=== PATIENT | male | born 1950 | race Hispanic/Latino ===

== ENCOUNTER → 2017-12-29 | Outpatient (CLI) | payer OTHER ==
[~2017-12-29] MED LIST: ASPI-1005 PO; ATOR20TA65 PO; CLOP75TA14 PO; METO25 PO; METO25TA6 PO; REGADENOSON 0.4 MG/5 ML PF SYG IVP SCH
== END | disposition home or self-care (01) ==
LOC: RAH 09:03
PROVIDERS: ATTEND Internal Medicine
DX: R06.02 Shortness of breath (principal); R06.09 Other forms of dyspnea
CPT/HCPCS: 78452; 93017; 96374; A9500 ×2; J2785

== ENCOUNTER → 2018-04-13 | Outpatient (CLI) | payer OTHER, MEDICARE ==
[~2018-04-13] MED LIST changes: -CLOP75TA14 PO; +ISOS30TA6 PO; +METO-391 PO; -METO25 PO; -METO25TA6 PO; -REGADENOSON 0.4 MG/5 ML PF SYG IVP SCH
== END | disposition home or self-care (01) ==
LOC: OIH 10:23
PROVIDERS: ATTEND Internal Medicine Cardiovascular Disease
DX: J84.9 Interstitial pulmonary disease, unspecified (principal); I25.10 Atherosclerotic heart disease of native coronary artery without angina pectoris
CPT/HCPCS: 71250

== ENCOUNTER 2018-06-23 17:44 | Emergency (ER) | payer OTHER, MEDICARE ==
[2018-06-23] MEDS ORDERED: ALBUTEROL SULFATE 0.083% 2.5 MG/3 ML INH IH ONE (18:17)
[2018-06-23 18:27] LABS: BASOPHILS % (AUTO) 0.7 % (0.0-5.0); EOSINOPHILS % (AUTO) 1.9 % (0.0-8.0); LYMPHOCYTES % (AUTO) 28.2 % (21.0-51.0); MEAN CORPUSCULAR HEMOGLOBIN 31.1 pg (27.0-33.0); MEAN CORPUSCULAR HGB CONC 34.5 g/dL (32.0-36.0); MEAN CORPUSCULAR VOLUME 90.2 fL (79-99); MONOCYTES % (AUTO) 6.9 % (3.0-13.0); NEUTROPHILS % (AUTO) 62.3 % (40.0-77.0); NUCLEATED RED BLOOD CELLS 0.1 % (0.0-0.19); PLATELET COUNT (AUTO) 222 K/uL (130-400); RED BLOOD CELL COUNT(AUTO) 4.32 MIL/uL (4.50-6.20); RED CELL DISTRIBUTION WIDTH 13.5 % (11.0-15.5)
[2018-06-23 18:37] LABS: POTASSIUM 4.1 mmol/L (3.5-5.1)
[2018-06-23 18:47] LABS: B-TYPE NATRIURETIC PEPTIDE 19 pg/mL (0-100)
[2018-06-23] MEDS ORDERED: AZITHROMYCIN 250 MG TABLET PO ONE (19:16)
[2018-06-23] MEDS ORDERED: PREDNISONE 20 MG TABLET ONE (19:16)
== END 2018-06-23 19:35 | disposition home or self-care (01) ==
LOC: EDH 17:44
DX: J20.9 Acute bronchitis, unspecified (principal); J44.1 Chronic obstructive pulmonary disease with (acute) exacerbation; E78.5 Hyperlipidemia, unspecified; I10 Essential (primary) hypertension; I25.10 Atherosclerotic heart disease of native coronary artery without angina pectoris; Z98.890 Other specified postprocedural states
CPT/HCPCS: 36415; 71046; 80048; 83880; 84484; 85025; 93005; 94640

== ENCOUNTER 2018-08-31 23:02 | Observation (INO) | payer OTHER, MEDICARE ==
[~2018-08-31] VITALS: Ht 172.7 cm; Wt 82.6 kg
[2018-08-31 23:43] LABS: BASOPHILS % (AUTO) 4.5 % (0.0-5.0); EOSINOPHILS % (AUTO) 2.2 % (0.0-8.0); LYMPHOCYTES % (AUTO) 17.8 % (21.0-51.0); MEAN CORPUSCULAR HEMOGLOBIN 30.4 pg (27.0-33.0); MEAN CORPUSCULAR HGB CONC 33.8 g/dL (32.0-36.0); MONOCYTES % (AUTO) 4.9 % (3.0-13.0); NEUTROPHILS % (AUTO) 70.6 % (40.0-77.0); PLATELET COUNT (AUTO) 213 K/uL (130-400); RED BLOOD CELL COUNT(AUTO) 4.11 MIL/uL (4.50-6.20); RED CELL DISTRIBUTION WIDTH 13.2 % (11.0-15.5); WHITE BLOOD COUNT (AUTO) 7.3 K/uL (4.8-10.8)
[2018-08-31 23:46] LABS: POTASSIUM 3.7 mmol/L (3.5-5.1)
[2018-08-31 23:48] LABS: INR 1.01 (0.85-1.15); PARTIAL THROMBOPLASTIN TIME 26.8 SEC (26.3-35.5); PROTHROMBIN TIME 10.6 SEC (9.6-11.6)
[2018-08-31 23:51] LABS: ALBUMIN 3.6 g/dL (3.5-5.0); BILIRUBIN,TOTAL 0.3 mg/dL (0.2-1.0); TOTAL PROTEIN, SERUM 7.3 g/dL (6.0-8.3)
[2018-08-31 23:58] LABS: APPEARANCE,URINE Clear (CLEAR); BILIRUBIN,URINE Negative (NEGATIVE); COLOR,URINE Yellow (YELLOW); GLUCOSE, URINE (UA) Negative (NEGATIVE); KETONES,URINE Negative (NEGATIVE); LEUKOCYTE ESTERASE ,URINE Negative (NEGATIVE); NITRATE,URINE Negative (NEGATIVE); OCCULT BLOOD,URINE Negative (NEGATIVE); PROTEIN,URINE Negative (NEGATIVE)
[2018-09-01 00:10] LABS: B-TYPE NATRIURETIC PEPTIDE 40 pg/mL (0-100)
[2018-09-01] MEDS ORDERED: ASPIRIN 325MG EC TAB 325 MG TABLET.DR PO STA (00:39)
[2018-09-01] MEDS ORDERED: ACETAMINOPHEN 325 MG TAB PO PRN (00:45)
[2018-09-01] MEDS ORDERED: ONDANSETRON HCL 4 MG/2 ML VIAL IV PRN (00:45)
[2018-09-01] MEDS ORDERED: NITROGLYCERIN 0.4 MG SL TAB SL PRN (00:45)
[2018-09-01] MEDS: IPRATROPIUM/ALBUTEROL SULFATE 3 ML SOLUTION IH PRN ×3 (01:18→18:13)
[2018-09-01] MEDS ORDERED: ASPIRIN 325 MG TABLET ONE ×2 (02:00→08:20)
[2018-09-01 02:36] LABS: AMPHET/METH SCREEN,URINE NEGATIVE (NEGATIVE); BARBITURATE SCREEN, URINE NEGATIVE (NEGATIVE); BENZODIAZEPINES SCREEN,URINE NEGATIVE (NEGATIVE); CANNABINOID SCREEN,URINE NEGATIVE (NEGATIVE); COCAINE SCREEN,URINE NEGATIVE (NEGATIVE); OPIATE SCREEN,URINE NEGATIVE (NEGATIVE); PHENCYCLIDINE SCREEN,URINE NEGATIVE (NEGATIVE)
[2018-09-01 06:17] LABS: BASOPHILS % (AUTO) 0.5 % (0.0-5.0); EOSINOPHILS % (AUTO) 1.4 % (0.0-8.0); HEMATOCRIT 34.5 % (42-54); LYMPHOCYTES % (AUTO) 26.9 % (21.0-51.0); MEAN CORPUSCULAR HEMOGLOBIN 30.7 pg (27.0-33.0); MEAN CORPUSCULAR HGB CONC 33.9 g/dL (32.0-36.0); MEAN CORPUSCULAR VOLUME 90.5 fL (79-99); MONOCYTES % (AUTO) 6.5 % (3.0-13.0); NEUTROPHILS % (AUTO) 64.7 % (40.0-77.0); PLATELET COUNT (AUTO) 184 K/uL (130-400); RED BLOOD CELL COUNT(AUTO) 3.82 MIL/uL (4.50-6.20); RED CELL DISTRIBUTION WIDTH 13.1 % (11.0-15.5); WHITE BLOOD COUNT (AUTO) 6.6 K/uL (4.8-10.8)
[2018-09-01 06:27] LABS: CARBON DIOXIDE 21 mmol/L (21-32); CHLORIDE 111 mmol/L (101-111); CREATININE 0.7 mg/dL (0.5-1.5); GLOMERULAR FILTR. RATE CALC 120 mL/min (>60); GLUCOSE,RANDOM 84 mg/dL (70-105); POTASSIUM 3.2 mmol/L (3.5-5.1); SODIUM SERUM 141 mmol/L (136-145); UREA NITROGEN, BLOOD 19 mg/dL (7-18)
[2018-09-01 06:40] LABS: ALANINE AMINOTRANSFERASE 31 U/L (12-78); ALBUMIN 2.8 g/dL (3.5-5.0); ASPARTATE AMINOTRANSFERASE 25 U/L (10-37); BILIRUBIN,TOTAL 0.4 mg/dL (0.2-1.0); CHOLESTEROL 81 mg/dL (<200); CREATINE KINASE, TOTAL 71 U/L (21-232); HDL CHOLESTEROL 36 mg/dL (29-71); LDL DIRECT 43 mg/dL (0-99); MYOGLOBIN 36 ng/mL (10-92); TOTAL PROTEIN, SERUM 5.8 g/dL (6.0-8.3); TRIGLYCERIDES 40 mg/dL (30-200); TROPONIN I < 0.04 ng/mL (0.00-0.06)
[2018-09-01] MEDS ORDERED: ENOXAPARIN SODIUM 30 MG/0.3 ML SQ ONE (08:17)
[2018-09-01] MEDS ORDERED: FAMOTIDINE 20MG TAB 20 MG TAB ONE (08:17)
[2018-09-01] MEDS ORDERED: METOPROLOL TARTRATE 25 MG TAB ONE (08:27)
[2018-09-01] MEDS ORDERED: ASPIRIN 325MG EC TAB 325 MG TABLET.DR PO SCH (09:00)
[2018-09-01] MEDS: METOPROLOL TARTRATE 25 MG TAB PO SCH ×2 (09:00→21:32)
[2018-09-01] MEDS: ENOXAPARIN SODIUM 30 MG/0.3 ML SQ SCH (09:00)
[2018-09-01] MEDS: FAMOTIDINE 20MG TAB 20 MG TAB PO SCH (09:00)
[2018-09-01] MEDS ORDERED: IPRATROPIUM/ALBUTEROL SULFATE 3 ML SOLUTION IH ONE (09:18)
[2018-09-01] MEDS ORDERED: LIDOCAINE HCL-MPF 1% 2ML VIAL IVP PRN (09:30)
[2018-09-01] MEDS ORDERED: POTASSIUM CHLORIDE 10% ELIXIR 20 MEQ/15 ML UDCUP PO PRN (09:30)
[2018-09-01] MEDS ORDERED: POTASSIUM CHLORIDE 20MEQ/100ML 100 ML IV PRN (09:30)
[2018-09-01 13:39] LABS: CREATINE KINASE, TOTAL 84 U/L (21-232); MYOGLOBIN 44 ng/mL (10-92); TROPONIN I < 0.04 ng/mL (0.00-0.06)
[2018-09-01] MEDS ORDERED: PRAS10TA9 PO (15:37)
[2018-09-01 16:00] VITALS: BP 117/75
[2018-09-01 19:00] VITALS: BP 144/67
[2018-09-02] VITALS: BP 135/77
[2018-09-02] MEDS: IPRATROPIUM/ALBUTEROL SULFATE 3 ML SOLUTION IH PRN (02:08)
[2018-09-02 04:00] VITALS: BP 122/74
[2018-09-02 04:40] LABS: HEMATOCRIT 37.1 % (42-54); MEAN CORPUSCULAR HEMOGLOBIN 30.7 pg (27.0-33.0); MEAN CORPUSCULAR HGB CONC 33.8 g/dL (32.0-36.0); MEAN CORPUSCULAR VOLUME 90.9 fL (79-99); PLATELET COUNT (AUTO) 229 K/uL (130-400); RED BLOOD CELL COUNT(AUTO) 4.08 MIL/uL (4.50-6.20); RED CELL DISTRIBUTION WIDTH 13.1 % (11.0-15.5); WHITE BLOOD COUNT (AUTO) 8.4 K/uL (4.8-10.8)
[2018-09-02 08:00] VITALS: BP 114/69
[2018-09-02] MEDS ORDERED: ASPIRIN 325MG EC TAB 325 MG TABLET.DR PO SCH (09:00)
[2018-09-02] MEDS: POTASSIUM CHLORIDE 20 MEQ ERTAB PO PRN ×3 (09:48→15:54)
[2018-09-02] MEDS: METOPROLOL TARTRATE 25 MG TAB PO SCH (09:49)
[2018-09-02] MEDS: FAMOTIDINE 20MG TAB 20 MG TAB PO SCH (09:49)
[2018-09-02] MEDS: ENOXAPARIN SODIUM 30 MG/0.3 ML SQ SCH (09:51)
[2018-09-02 12:00] VITALS: BP 124/72
[2018-09-02 16:00] VITALS: BP 118/80
== END 2018-09-02 18:00 | disposition home or self-care (01) ==
LOC: EDH 23:02 → EDHIP 09-01 00:41 → 3BH 09-01 14:54
PROVIDERS: ADMIT Internal Medicine; ATTEND Internal Medicine
DX: R07.89 Other chest pain (principal); I10 Essential (primary) hypertension; E78.5 Hyperlipidemia, unspecified; M51.37 Other intervertebral disc degeneration, lumbosacral region; I25.10 Atherosclerotic heart disease of native coronary artery without angina pectoris; J44.9 Chronic obstructive pulmonary disease, unspecified; J84.10 Pulmonary fibrosis, unspecified; Z82.49 Family history of ischemic heart disease and other diseases of the circulatory system; Z83.3 Family history of diabetes mellitus; Z95.1 Presence of aortocoronary bypass graft; Z96.652 Presence of left artificial knee joint
CPT/HCPCS: 36415 ×3; 70450; 71045; 80053 ×2; 80061; 80305; 81003; 82550 ×2; 83735; 83874 ×2; 83880; 84484 ×4; 85025 ×2; 85027; 85610; 85730; 93005 ×3; 94640 ×4; 94664; 96372; 99284; G0378 ×41; J1650 ×2

== ENCOUNTER 2019-03-02 16:06 | Emergency (ER) | payer OTHER, MEDICARE ==
[~2019-03-02 16:06] MED LIST changes: +PRAS10TA9 PO
[2019-03-02] MEDS ORDERED: ONDANSETRON HCL 4 MG/2 ML VIAL ONE (16:33)
[2019-03-02 16:35] LABS: BASOPHILS % (AUTO) 0.4 % (0.0-5.0); EOSINOPHILS % (AUTO) 2.6 % (0.0-8.0); HEMATOCRIT 35.6 % (42-54); MEAN CORPUSCULAR HEMOGLOBIN 29.8 pg (27.0-33.0); MEAN CORPUSCULAR HGB CONC 34.3 g/dL (32.0-36.0); MEAN CORPUSCULAR VOLUME 86.9 fL (79-99); MONOCYTES % (AUTO) 6.2 % (3.0-13.0); NEUTROPHILS % (AUTO) 62.8 % (40.0-77.0); PLATELET COUNT (AUTO) 244 K/uL (130-400); RED BLOOD CELL COUNT(AUTO) 4.09 MIL/uL (4.50-6.20); RED CELL DISTRIBUTION WIDTH 14.4 % (11.0-15.5); WHITE BLOOD COUNT (AUTO) 6.2 K/uL (4.8-10.8)
[2019-03-02 16:54] LABS: CREATININE 1.1 mg/dL (0.5-1.5); POTASSIUM 4.7 mmol/L (3.5-5.1)
[2019-03-02 16:57] LABS: APPEARANCE,URINE Clear (CLEAR); BILIRUBIN,URINE Negative (NEGATIVE); COLOR,URINE Yellow (YELLOW); GLUCOSE, URINE (UA) Negative (NEGATIVE); KETONES,URINE Negative (NEGATIVE); LEUKOCYTE ESTERASE ,URINE Negative (NEGATIVE); NITRATE,URINE Negative (NEGATIVE); OCCULT BLOOD,URINE Negative (NEGATIVE); PH,URINE 5.5 (5.0-8.0); PROTEIN,URINE Negative (NEGATIVE)
[2019-03-02 16:59] LABS: BILIRUBIN,TOTAL 0.3 mg/dL (0.2-1.0); TOTAL PROTEIN, SERUM 7.6 g/dL (6.0-8.3)
[2019-03-02 17:01] LABS: INR 0.98 (0.85-1.15); PARTIAL THROMBOPLASTIN TIME 25.2 SEC (26.3-35.5); PROTHROMBIN TIME 10.3 SEC (9.6-11.6)
[2019-03-02] MEDS ORDERED: ASPIRIN 325 MG TABLET ONE (17:10)
== END 2019-03-02 19:28 | disposition home or self-care (01) ==
LOC: EDH 16:06
DX: J84.112 Idiopathic pulmonary fibrosis (principal); I25.810 Atherosclerosis of coronary artery bypass graft(s) without angina pectoris; J44.9 Chronic obstructive pulmonary disease, unspecified; I10 Essential (primary) hypertension
CPT/HCPCS: 36415; 71045; 80053; 81003; 82550; 84484 ×2; 85025; 85610; 85730; 93005 ×2; 96374; 99285; J2405

== ENCOUNTER 2019-12-27 17:20 | Emergency (ER) | payer OTHER, MEDICARE ==
[2019-12-27 17:48] LABS: BASOPHILS % (AUTO) 0.4 % (0.0-5.0); HEMATOCRIT 39.9 % (42-54); MEAN CORPUSCULAR HEMOGLOBIN 31.6 pg (27.0-33.0); MEAN CORPUSCULAR HGB CONC 34.3 g/dL (32.0-36.0); MEAN CORPUSCULAR VOLUME 92.1 fL (79-99); MONOCYTES % (AUTO) 6.8 % (3.0-13.0); NEUTROPHILS % (AUTO) 66.4 % (40.0-77.0); PLATELET COUNT (AUTO) 188 K/uL (130-400); RED BLOOD CELL COUNT(AUTO) 4.33 MIL/uL (4.50-6.20); WHITE BLOOD COUNT (AUTO) 6.8 K/uL (4.8-10.8)
[2019-12-27 18:01] LABS: POTASSIUM 3.9 mmol/L (3.5-5.1)
== END 2019-12-27 19:20 | disposition home or self-care (01) ==
LOC: EDH 17:20
DX: R20.2 Paresthesia of skin (principal); I25.10 Atherosclerotic heart disease of native coronary artery without angina pectoris; J44.9 Chronic obstructive pulmonary disease, unspecified; E78.5 Hyperlipidemia, unspecified; I10 Essential (primary) hypertension; Z88.8 Allergy status to other drugs, medicaments and biological substances
CPT/HCPCS: 36415; 80048; 84484; 85025; 93005

== ENCOUNTER 2021-02-12 07:23 | Emergency (ER) | payer OTHER, MEDICARE ==
[~2021-02-12] VITALS: Ht 172.7 cm; Wt 80.3 kg
[~2021-02-12 07:23] MED LIST changes: -ISOS30TA6 PO; +ISOS30TA92 PO
[2021-02-12 07:50] LABS: BASOPHILS % (AUTO) 0.1 % (0.0-5.0); EOSINOPHILS % (AUTO) 0.4 % (0.0-8.0); LYMPHOCYTES % (AUTO) 11.1 % (21.0-51.0); MEAN CORPUSCULAR HEMOGLOBIN 32.3 pg (27.0-33.0); MEAN CORPUSCULAR VOLUME 94.8 fL (79-99); MONOCYTES % (AUTO) 6.5 % (3.0-13.0); NEUTROPHILS % (AUTO) 81.4 % (40.0-77.0); PLATELET COUNT (AUTO) 217 K/uL (130-400); RED BLOOD CELL COUNT(AUTO) 4.43 MIL/uL (4.50-6.20); RED CELL DISTRIBUTION WIDTH 12.5 % (11.0-15.5)
[2021-02-12 07:56] VITALS: BP 143/84
[2021-02-12 08:01] LABS: INR 1.03 (0.85-1.15); PROTHROMBIN TIME 11.2 SEC (9.6-11.6)
[2021-02-12 08:10] LABS: B-TYPE NATRIURETIC PEPTIDE 72 pg/mL (0-100)
[2021-02-12 08:11] LABS: APPEARANCE,URINE Clear (CLEAR); BILIRUBIN,URINE Negative (NEGATIVE); COLOR,URINE Yellow (YELLOW); GLUCOSE, URINE (UA) Negative (NEGATIVE); KETONES,URINE Negative (NEGATIVE); LEUKOCYTE ESTERASE ,URINE Negative (NEGATIVE); NITRATE,URINE Negative (NEGATIVE); OCCULT BLOOD,URINE Negative (NEGATIVE); PH,URINE 7.5 (5.0-8.0); PROTEIN,URINE Negative (NEGATIVE)
[2021-02-12 08:16] LABS: ALBUMIN 3.7 g/dL (3.5-5.0); BILIRUBIN,TOTAL 0.7 mg/dL (0.2-1.0); POTASSIUM 4.4 mmol/L (3.5-5.1); TOTAL PROTEIN, SERUM 8.5 g/dL (6.0-8.3)
[2021-02-12 13:48] VITALS: BP 112/66
[2021-02-12] MEDS ORDERED: ACETAMINOPHEN 500 MG TABLET ONE (14:54)
[2021-02-12] MEDS ORDERED: ACETAMINOPHEN 500 MG TABLET PO ONE (15:00)
[2021-02-12] MEDS ORDERED: ATOR40TA71 PO (16:29)
[2021-02-12] MEDS ORDERED: ISOS60TA77 PO (16:30)
[2021-02-12] MEDS ORDERED: LORA10TA7 PO (16:31)
[2021-02-12] MEDS ORDERED: TRAZ-185 PO (16:32)
[2021-02-12] MEDS ORDERED: LEVO500T89 PO (16:34)
== END 2021-02-12 17:36 | disposition home or self-care (01) ==
LOC: EDH 07:23
DX: R07.89 Other chest pain (principal); I25.10 Atherosclerotic heart disease of native coronary artery without angina pectoris; J84.10 Pulmonary fibrosis, unspecified; E78.00 Pure hypercholesterolemia, unspecified; Z20.822 Contact with and (suspected) exposure to COVID-19; Z98.890 Other specified postprocedural states; Z91.041 Radiographic dye allergy status; Z79.82 Long term (current) use of aspirin; Z79.899 Other long term (current) drug therapy
CPT/HCPCS: 36415; 71046; 76770; 78582; 80053; 81003; 82550; 83605; 83880; 84145; 84484; 85025; 85378; 85610; 85730; 87040 ×2; 87088; 87635; 93005 ×2; 93970; 99285; A9540; A9558; C9803

== ENCOUNTER → 2023-03-31 | Outpatient (CLI) | payer OTHER, MEDICARE ==
[~2023-03-31] MED LIST changes: +ATOR40TA71 PO; +ISOS60TA77 PO; +LEVO-70 PO; +LORA10TA7 PO; +TRAZ-185 PO
== END | disposition home or self-care (01) ==
LOC: RAH 10:38
PROVIDERS: ATTEND Internal Medicine
DX: Z01.818 Encounter for other preprocedural examination (principal); I25.10 Atherosclerotic heart disease of native coronary artery without angina pectoris; M47.815 Spondylosis without myelopathy or radiculopathy, thoracolumbar region
CPT/HCPCS: 71046

== ENCOUNTER 2023-04-25 05:02 | Observation (INO) | payer OTHER, MEDICARE ==
[2023-04-22 14:11] VITALS: BP 140/78; PULSE 64; RESP 18
[2023-04-25] VITALS (28 sets, daily range): BP systolic 102–144; BP diastolic 58–94; PULSE 57–86; RESP 13–20; O2SAT 97–98
[~2023-04-25] VITALS: Ht 172.7 cm; Wt 79.3 kg
[~2023-04-25 05:02] MED LIST changes: -ASPI-1005 PO; -ATOR20TA65 PO; +CLOP75TA32 PO; -ISOS30TA92 PO; -LEVO-70 PO; +NINT150C PO; -PRAS10TA9 PO; +RANO500T6 PO
[2023-04-25] MEDS ORDERED: LACTATED RINGERS 1000ML 1,000 ML IV ONE (05:56)
[2023-04-25] MEDS ORDERED: WARF4TAB72 PO (06:06)
[2023-04-25] MEDS: CEFAZOLIN SODIUM 2 GM VIAL ONE ×2 (06:21→09:51)
[2023-04-25] MEDS ORDERED: 0.9%NACL 100ML 48.45 ML, ROPIVACAINE 0.5% 5MG/ML 30ML 246.25 MG, KETOROLAC TROMETHAMINE... IV PRN ×5 (07:30)
[2023-04-25] MEDS ORDERED: GLYCOPYRROLATE 1 MG/5 ML SYRINGE ONE (08:40)
[2023-04-25] MEDS ORDERED: PROPOFOL 10 MG/ML 20ML VIAL IV ONE (08:40)
[2023-04-25] MEDS ORDERED: ONDANSETRON 4MG INJ ONE (08:40)
[2023-04-25] MEDS ORDERED: DEXAMETHASONE SOD PHOSPHATE 10MG/ML 1ML VIAL ONE (08:40)
[2023-04-25] MEDS ORDERED: SUCCINYLCHOLINE 200MG/10ML SYR ONE (08:40)
[2023-04-25] MEDS ORDERED: LIDOCAINE PF 100MG/5ML (2%) SYRINGE 5ML ONE (08:40)
[2023-04-25] MEDS ORDERED: NEOSTIGMINE 5MG/5ML SYR IV ONE (08:41)
[2023-04-25] MEDS ORDERED: MIDAZOLAM HCL 1 MG/ML 2ML VIAL ONE (08:41)
[2023-04-25] MEDS ORDERED: FENTANYL CITRATE PF 50 MCG/1 ML 2ML VIAL ONE ×2 (08:41→10:11)
[2023-04-25] MEDS ORDERED: ROCURONIUM 10MG/1ML SYR 10 MG/ML ML ONE (08:41)
[2023-04-25] MEDS ORDERED: TRANEXAMIC ACID 1000MG/10ML ONE (09:32)
[2023-04-25] MEDS ORDERED: CEFAZOLIN SODIUM 1 GM VIAL ONE (09:32)
[2023-04-25] MEDS ORDERED: GENTAMICIN SULFATE 80 MG/2 ML VIAL ONE (09:33)
[2023-04-25] MEDS ORDERED: TRANEXAMIC ACID 1000MG/10ML IV ONE (10:33)
[2023-04-25] MEDS ORDERED: ACETAMINOPHEN 325 MG TAB PO SCH (13:00)
[2023-04-25] MEDS ORDERED: DIPHENHYDRAMINE HCL 25 MG CAPSULE PO PRN (13:00)
[2023-04-25] MEDS ORDERED: ONDANSETRON 4MG INJ IVP PRN (13:00)
[2023-04-25] MEDS ORDERED: HYDROMORPHONE PCA 10 MG/50 ML 50 ML IV PRN (13:00)
[2023-04-25] MEDS ORDERED: ACETAMINOPHEN 325 MG TAB PO PRN ×2 (13:00)
[2023-04-25] MEDS ORDERED: MAG/ALUM/SIMETH 30 ML UDCUP PO PRN (13:00)
[2023-04-25] MEDS ORDERED: LACTULOSE 20 GM/30 ML UDCUP PO PRN (13:00)
[2023-04-25] MEDS ORDERED: BENZOCAINE/MENTH/CETYLPYRD CL 1 EACH LOZENGE MM PRN (13:00)
[2023-04-25] MEDS ORDERED: DiphenhydrAMINE HCL 50 MG/ML VIAL IM PRN (13:00)
[2023-04-25] MEDS ORDERED: DIPHENOXYLATE HCL/ATROPINE 2.5/0.025 MG TAB PO PRN (13:00)
[2023-04-25] MEDS ORDERED: DIPHENHYDRAMINE HCL 25 MG CAPSULE PO SCH (13:00)
[2023-04-25] MEDS ORDERED: WARFARIN SODIUM 5 MG TAB PO SCH (16:00)
[2023-04-25] MEDS ORDERED: WARFARIN SODIUM 2 MG TAB PO SCH (17:00)
[2023-04-25 17:03] LABS: BASOPHILS # (AUTO) 0.01 K/uL (0.00-0.20); BASOPHILS % (AUTO) 0.1 % (0.0-5.0); HEMATOCRIT 39.3 % (42-54); IMMATURE GRANULOCYTE ABSOLUTE 0.03 K/uL (0-1); LYMPHOCYTES # (AUTO) 0.8 K/uL (1.0-4.8); LYMPHOCYTES % (AUTO) 11.2 % (21.0-51.0); MEAN CORPUSCULAR HEMOGLOBIN 32.1 pg (27.0-33.0); MEAN CORPUSCULAR HGB CONC 33.3 g/dL (32.0-36.0); MEAN CORPUSCULAR VOLUME 96.3 fL (79-99); MONOCYTES # (AUTO) 0.1 K/uL (0.1-1.0); MONOCYTES % (AUTO) 0.9 % (3.0-13.0); NEUTROPHILS # (AUTO) 6.5 K/uL (1.8-7.7); NEUTROPHILS % (AUTO) 87.4 % (40.0-77.0); PLATELET COUNT (AUTO) 143 K/uL (130-400); RED BLOOD CELL COUNT(AUTO) 4.08 MIL/uL (4.50-6.20); RED CELL DISTRIBUTION WIDTH 12.4 % (11.0-15.5); WHITE BLOOD COUNT (AUTO) 7.4 K/uL (4.8-10.8)
[2023-04-25 17:17] LABS: ALBUMIN 3.2 g/dL (3.5-5.0); BILIRUBIN,TOTAL 0.4 mg/dL (0.2-1.0); CREATININE 1.2 mg/dL (0.5-1.5); POTASSIUM 4.5 mmol/L (3.5-5.1); TOTAL PROTEIN, SERUM 6.9 g/dL (6.0-8.3)
[2023-04-25] MEDS ORDERED: TRAZODONE HCL 50 MG TAB PO SCH (21:00)
[2023-04-25] MEDS: CEFAZOLIN SODIUM 2 GM VIAL IVPB SCH (21:59)
[2023-04-25] MEDS: FAMOTIDINE 20MG TAB PO SCH (21:59)
[2023-04-25] MEDS: RANOLAZINE 500 MG TAB.SR.12H PO SCH (21:59)
[2023-04-26] VITALS: BP 129/62; PULSE 70; RESP 18
[2023-04-26 04:00] VITALS: BP 128/78; PULSE 65; RESP 20
[2023-04-26] MEDS: CEFAZOLIN SODIUM 2 GM VIAL IVPB SCH (04:20)
[2023-04-26 05:36] LABS: HEMATOCRIT 35.6 % (42-54); MEAN CORPUSCULAR HEMOGLOBIN 32.3 pg (27.0-33.0); MEAN CORPUSCULAR HGB CONC 34.3 g/dL (32.0-36.0); MEAN CORPUSCULAR VOLUME 94.2 fL (79-99); RED BLOOD CELL COUNT(AUTO) 3.78 MIL/uL (4.50-6.20); RED CELL DISTRIBUTION WIDTH 12.4 % (11.0-15.5); WHITE BLOOD COUNT (AUTO) 15.1 K/uL (4.8-10.8)
[2023-04-26 05:48] LABS: INR 2.4 (0.85-1.15); PROTHROMBIN TIME 24.8 SEC (9.6-11.6)
[2023-04-26 05:51] LABS: CREATININE 1.1 mg/dL (0.5-1.5); POTASSIUM 4.4 mmol/L (3.5-5.1)
[2023-04-26 08:00] VITALS: BP 123/76; PULSE 57; RESP 16
[2023-04-26] MEDS ORDERED: METO-391 PO (08:10)
[2023-04-26] MEDS ORDERED: FLUT1BLS3 IH (08:10)
[2023-04-26] MEDS: RANOLAZINE 500 MG TAB.SR.12H PO SCH (08:51)
[2023-04-26] MEDS: FAMOTIDINE 20MG TAB PO SCH (08:52)
[2023-04-26] MEDS: TRAMADOL HCL 50 MG TABLET PO PRN ×2 (08:58→16:27)
[2023-04-26] MEDS ORDERED: CLOPIDOGREL 75MG TAB PO SCH (09:00)
[2023-04-26] MEDS ORDERED: ISOSORBIDE MONO 60MG SR TAB PO SCH (09:00)
[2023-04-26] MEDS ORDERED: ATORVASTATIN 40 MG TABLET PO SCH (09:00)
[2023-04-26] MEDS ORDERED: METOPROLOL SUCCINATE 50 MG TAB.SR.24H PO SCH (09:00)
[2023-04-26] MEDS ORDERED: LORATADINE 10 MG TABLET PO SCH (09:00)
[2023-04-26 11:20] VITALS: BP 105/59; PULSE 60; RESP 21
[2023-04-26 15:20] VITALS: BP 108/68; PULSE 58; RESP 21
[2023-04-26 16:00] VITALS: O2SAT 97
== END 2023-04-26 17:16 | disposition home or self-care (01) ==
LOC: DAH 05:02 → DAHIP 05:03 → DAH 05:03 → 4CH 12:50
PROVIDERS: ADMIT Orthopaedic Surgery; ATTEND Orthopaedic Surgery
DX: M17.11 Unilateral primary osteoarthritis, right knee (principal); I10 Essential (primary) hypertension; M25.561 Pain in right knee; I25.10 Atherosclerotic heart disease of native coronary artery without angina pectoris; E78.5 Hyperlipidemia, unspecified; J84.10 Pulmonary fibrosis, unspecified; Z96.651 Presence of right artificial knee joint; Z98.1 Arthrodesis status; Z95.1 Presence of aortocoronary bypass graft; Z79.899 Other long term (current) drug therapy; Z98.890 Other specified postprocedural states
CPT/HCPCS: 87641; 27447; 96365; 96366 ×3; 96368; 80053; 85025; 36415 ×2; 97161; 97012; 97116 ×3; 97530 ×8; 80048; 85027; 85610; A6260; G0378 ×25; G0379; A4510; A4663; J7120 ×2; A4215 ×2; A4649 ×4; J3010 ×2; J0690 ×4; J3490 ×2; J1170; J0330; J1100; J2001; J1580; J2250; J2704; J2405; A6223; C1763 ×2; C1776; A5120; A4223; A4222; A4221; A6450; J7030; 96367; J2710

== ENCOUNTER 2023-07-04 05:02 | Day surgery (SDC) | payer OTHER, MEDICARE ==
[2023-07-01 11:28] LABS: BASOPHILS # (AUTO) 0.02 K/uL (0.00-0.20); BASOPHILS % (AUTO) 0.3 % (0.0-5.0); EOSINOPHILS # (AUTO) 0.19 K/uL (0.00-0.70); EOSINOPHILS % (AUTO) 2.9 % (0.0-8.0); HEMATOCRIT 41.2 % (42-54); IMMATURE GRANULOCYTE ABSOLUTE 0.02 K/uL (0-1); LYMPHOCYTES # (AUTO) 1.9 K/uL (1.0-4.8); LYMPHOCYTES % (AUTO) 28.4 % (21.0-51.0); MEAN CORPUSCULAR HEMOGLOBIN 33.7 pg (27.0-33.0); MEAN CORPUSCULAR HGB CONC 34.2 g/dL (32.0-36.0); MEAN CORPUSCULAR VOLUME 98.3 fL (79-99); MONOCYTES # (AUTO) 0.5 K/uL (0.1-1.0); MONOCYTES % (AUTO) 7.2 % (3.0-13.0); NEUTROPHILS % (AUTO) 60.9 % (40.0-77.0); PLATELET COUNT (AUTO) 171 K/uL (130-400); RED BLOOD CELL COUNT(AUTO) 4.19 MIL/uL (4.50-6.20); WHITE BLOOD COUNT (AUTO) 6.6 K/uL (4.8-10.8)
[2023-07-01 11:33] VITALS: BP 156/77; PULSE 60; RESP 17
[2023-07-01 11:38] LABS: CREATININE 0.9 mg/dL (0.5-1.5)
[2023-07-01 11:44] LABS: INR 0.95 (0.85-1.15); PROTHROMBIN TIME 11.1 SEC (9.6-11.6)
[2023-07-01 11:45] LABS: PARTIAL THROMBOPLASTIN TIME 28.2 SEC (26.3-35.5)
[2023-07-04] VITALS (18 sets, daily range): BP systolic 101–138; BP diastolic 53–70; PULSE 48–63; RESP 14–18
[~2023-07-04] VITALS: Ht 167.6 cm; Wt 75.8 kg
[~2023-07-04 05:02] MED LIST changes: +FLUT1BLS3 IH; -TRAZ-185 PO
[2023-07-04] MEDS ORDERED: LACTATED RINGERS 1000ML 1,000 ML IV ONE (05:16)
[2023-07-04] MEDS ORDERED: CEFAZOLIN SODIUM 2 GM VIAL ONE (05:16)
[2023-07-04] MEDS ORDERED: 0.9%NACL 48.45 ML, ROPIVACAINE 0.5% 49.25ML, EPINEPH 0.5MG KETOROLAC 30MG,CLONIDINE 80MCG IV PRN ×5 (06:00)
[2023-07-04] MEDS ORDERED: PROPOFOL 10 MG/ML 20ML VIAL IV ONE (06:50)
[2023-07-04] MEDS ORDERED: LIDOCAINE PF 100MG/5ML (2%) SYRINGE 5ML ONE (06:50)
[2023-07-04] MEDS ORDERED: ROCURONIUM 10MG/1ML SYR 10 MG/ML ML ONE (06:50)
[2023-07-04] MEDS ORDERED: FENTANYL CITRATE PF 50 MCG/1 ML 2ML VIAL ONE (06:51)
[2023-07-04] MEDS ORDERED: ACETAMINOPHEN 1,000 MG/100 ML VIAL IV ONE (06:58)
[2023-07-04] MEDS ORDERED: ONDANSETRON 4MG INJ ONE (07:13)
[2023-07-04] MEDS ORDERED: DEXAMETHASONE SOD PHOSPHATE 10MG/ML 1ML VIAL ONE (07:13)
[2023-07-04] MEDS ORDERED: NEOSTIGMINE 5MG/5ML SYR IV ONE (07:14)
[2023-07-04] MEDS ORDERED: GLYCOPYRROLATE 1 MG/5 ML SYRINGE ONE (07:14)
[2023-07-04] MEDS ORDERED: SUGAMMADEX SODIUM 200 MG/2 ML VIAL IV ONE (07:35)
[2023-07-04] MEDS ORDERED: TRAMADOL HCL 50 MG TABLET ONE (08:59)
[2023-07-04] MEDS ORDERED: TRAMADOL HCL 50 MG TABLET PO SCH ×2 (09:00)
[2023-07-04] MEDS ORDERED: TRAMADOL HCL 50 MG TABLET PO PRN (09:30)
== END 2023-07-04 11:53 | disposition home or self-care (01) ==
LOC: DAH 05:02
PROVIDERS: ATTEND Orthopaedic Surgery
DX: M25.661 Stiffness of right knee, not elsewhere classified (principal); T84.89XA Other specified complication of internal orthopedic prosthetic devices, implants and grafts, initial encounter; M23.8X1 Other internal derangements of right knee; I10 Essential (primary) hypertension; E78.5 Hyperlipidemia, unspecified; J84.10 Pulmonary fibrosis, unspecified; I25.10 Atherosclerotic heart disease of native coronary artery without angina pectoris; Y82.8 Other medical devices associated with adverse incidents; Z91.041 Radiographic dye allergy status; Z82.49 Family history of ischemic heart disease and other diseases of the circulatory system; Z83.3 Family history of diabetes mellitus; Z95.1 Presence of aortocoronary bypass graft; Z80.9 Family history of malignant neoplasm, unspecified; Z79.899 Other long term (current) drug therapy; Z98.890 Other specified postprocedural states
CPT/HCPCS: 80048; 85025; 85610; 85730; 36415; 27570; 97161; 97116; 97530; A6260; A4663; J7030; A4215 ×2; J7120; J3010; J3490; J1100; J2710; J0171; J2001; J2704; J2405; J1885; J2795; J0735; J0690; A4223; A4222; A4221; A4510

== ENCOUNTER → 2023-10-26 | Outpatient (CLI) | payer MEDICARE | END | disposition home or self-care (01) | LOC: RAH 08:55 | PROVIDERS: ATTEND Internal Medicine | DX: J44.9 Chronic obstructive pulmonary disease, unspecified (principal); R63.4 Abnormal weight loss; R94.5 Abnormal results of liver function studies | CPT/HCPCS: 71046 ==

== ENCOUNTER → 2023-11-04 | Outpatient (CLI) | payer MEDICARE | END | disposition home or self-care (01) | LOC: RAH 07:35 | PROVIDERS: ATTEND Internal Medicine | DX: R63.4 Abnormal weight loss (principal); R94.5 Abnormal results of liver function studies | CPT/HCPCS: 76700 ==

== ENCOUNTER → 2024-07-06 | Outpatient (CLI) | payer MEDICARE ==
--- NOTE | 2024-07-06 11:40 | HMCIMG ---
US PELVIC NON-OB LIMITED HISTORY: Abnormal weight loss COMPARISON: None TECHNIQUE: Bladder ultrasound study was performed. FINDINGS: Prevoid bladder volume is 198 cc. Postvoid bladder volume is 14 cc. Prostate gland measures 3.8 x 3.9 x 4.1 cm. Prostate volume is 31 cc. Bladder wall measures 5 mm. IMPRESSION: 1. No acute finding.
== END | disposition home or self-care (01) ==
LOC: RAH 09:15
PROVIDERS: ATTEND Internal Medicine
DX: R63.0 Anorexia (principal); R63.4 Abnormal weight loss
CPT/HCPCS: 76857

== ENCOUNTER → 2024-07-17 | Outpatient (CLI) | payer MEDICARE ==
--- NOTE | 2024-07-17 10:32 | HMCIMG ---
US ABDOMINAL COMPLETE REASON: ANOREXIA 11/04/2023 COMPARISON: None FINDINGS: There is mild fatty infiltration of the liver. There are no focal mass lesions. The liver is not enlarged.There is a 7 mm gallbladder wall polyp which appears unchanged compared to prior study. The cystic is echogenic and may be calcified. There are no visible gallstones and there is no wall thickening or edema. There is a 2.7 cm left renal cyst. Kidneys appear otherwise normal in size and appearance. There is no evidence of mass, stone or hydronephrosis. Spleen and common duct appear normal. Aorta and inferior vena cava appear normal. The pancreas appears normal as well. IMPRESSION: 1. Calcified polyp in the gallbladder unchanged compared to prior study. 2. 2.7 cm left renal cyst. 3. Mild hepatic steatosis.
== END | disposition home or self-care (01) ==
LOC: RAH 08:45
PROVIDERS: ATTEND Internal Medicine
DX: N28.1 Cyst of kidney, acquired (principal); K76.0 Fatty (change of) liver, not elsewhere classified; R63.0 Anorexia; R63.4 Abnormal weight loss; K82.8 Other specified diseases of gallbladder; K82.4 Cholesterolosis of gallbladder
CPT/HCPCS: 76700

== ENCOUNTER 2024-09-04 05:57 | Day surgery (SDC) | payer MEDICARE ==
[2024-09-04] VITALS (11 sets, daily range): BP systolic 92–120; BP diastolic 55–81; PULSE 60–67; RESP 14–17; TEMP 97.3–98
[~2024-09-04] VITALS: Ht 172.7 cm; Wt 66.7 kg
[~2024-09-04 05:57] MED LIST changes: +FLUT1AER IH; -LORA10TA7 PO; -METO-391 PO; +METO-408 PO
[2024-09-04] MEDS: 0.9%NACL 1000ML 1,000 ML IV ONE (06:34)
[2024-09-04] MEDS ORDERED: proPOFol 10 MG/ML 20ML VIAL IV ONE (07:47)
--- NOTE | 2024-09-04 09:27 | NUR ---
Full and complete Discharge Instructions given to Patient and Family both verbally and in writing.. All questions answered.Voiced understanding to GI procedure precautions and Follow Up. PIV removed with catheter tip intact. Denies c/o pain or discomfort. W/C to POV with Family to home.
== END 2024-09-04 09:20 | disposition home or self-care (01) ==
LOC: SUH 05:57 → DAH 05:57 → SUH 09:20
PROVIDERS: ATTEND Internal Medicine Gastroenterology
DX: R63.4 Abnormal weight loss (principal); K29.50 Unspecified chronic gastritis without bleeding; B96.81 Helicobacter pylori [H. pylori] as the cause of diseases classified elsewhere; R12 Heartburn; R11.10 Vomiting, unspecified; K76.0 Fatty (change of) liver, not elsewhere classified; K57.30 Diverticulosis of large intestine without perforation or abscess without bleeding; K64.1 Second degree hemorrhoids; K82.9 Disease of gallbladder, unspecified; K44.9 Diaphragmatic hernia without obstruction or gangrene; I10 Essential (primary) hypertension; E78.5 Hyperlipidemia, unspecified; I25.10 Atherosclerotic heart disease of native coronary artery without angina pectoris; K21.9 Gastro-esophageal reflux disease without esophagitis; Z91.018 Allergy to other foods; M19.90 Unspecified osteoarthritis, unspecified site; Z86.0100 Personal history of colon polyps, unspecified; Z95.1 Presence of aortocoronary bypass graft; Z95.5 Presence of coronary angioplasty implant and graft; Z79.899 Other long term (current) drug therapy
CPT/HCPCS: 43239; J7030 ×2; J2704; A4620; A4215; A4223; A7002; A4222; A4221; A4663; A4606; J3490

== ENCOUNTER → 2024-10-16 | Outpatient (CLI) | payer MEDICARE ==
[~2024-10-16] MED LIST changes: -CLOP75TA32 PO; -FLUT1BLS3 IH
--- NOTE | 2024-10-16 12:52 | HMCIMG ---
US SOFT TISSUE LOWER EXTREMITY REASON: MASS/LUMP LT LE. COMPARISON: None TECHNIQUE: Left lower extremity/left ankle ultrasound study was performed with specific attention is given to the dorsal aspect over the palpable region. FINDINGS: At the region of interest at the dorsal aspect of the left ankle, no definite sonographic evidence of cystic or hypoechoic mass is seen. The study is limited due to poor visualization. IMPRESSION: Findings as described above.
== END | disposition home or self-care (01) ==
LOC: RAH 10:53
PROVIDERS: ATTEND Internal Medicine
DX: R22.42 Localized swelling, mass and lump, left lower limb (principal)
CPT/HCPCS: 76882

== ENCOUNTER → 2024-11-06 | Outpatient (CLI) | payer MEDICARE ==
--- NOTE | 2024-11-06 11:38 | HMCIMG ---
Exam Type: LUMBAR SPINE 2-3VWS Clinical Information: RADICULOPATHY, LUMBAR REGION Comparison: None Findings: Exam of the lumbosacral spine demonstrates no evidence of fracture or subluxation. There are moderate spondylitic changes. The facet joints show moderate degenerative changes. The alignment of the spine is normal. The disc spaces are intact. Bone mineralization is normal. Impression: Spondylitic changes and degenerative changes of the apophyseal joints as noted.
== END | disposition home or self-care (01) ==
LOC: RAH 10:56
PROVIDERS: ATTEND Internal Medicine
DX: M47.27 Other spondylosis with radiculopathy, lumbosacral region (principal); M19.09 Primary osteoarthritis, other specified site
CPT/HCPCS: 72100

== ENCOUNTER → 2024-11-20 | Outpatient (CLI) | payer MEDICARE ==
[~2024-11-20] MED LIST changes: +GADOTERATE MEGLUMINE 5 MMOL/10 ML VIAL IV ONE
--- NOTE | 2024-11-20 12:06 | HMCIMG ---
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 Axial T1, T2 and proton density images were also acquired. FINDINGS: Examination shows adequate alignment of the vertebral bodies of the lumbar spine. No fractures or dislocations are identified.The bone marrow signal is normal for age. The spinal canal contents are preserved. The conus terminates at a normal level at T12 to L2. The paraspinal muscles and other tissues show no significant abnormalities. Evaluation of the lumbar spine by level: T12-L1: There is no spinal canal stenosis. No disc herniation or bulge is noted. There is no neural foraminal stenosis, impingement, or narrowing. L1-L2: There is no spinal canal stenosis. No disc herniation or bulge is noted. There is no neural foraminal stenosis, impingement, or narrowing. L2-L3: Central zone disc protrusion with ligamentum flavum hypertrophy. Combination of factors cause spinal canal stenosis and bilateral neural foraminal narrowing and nerve root impingement. L3-L4: There is no spinal canal stenosis. No disc herniation or bulge is noted. There is no neural foraminal stenosis, impingement, or narrowing. L4-L5: Central zone disc protrusion with ligamentum flavum hypertrophy. Combination of factors cause spinal canal stenosis and bilateral neural foraminal narrowing and nerve root impingement. L5-S1: Grade 1 anterolisthesis of L5 over S1 related to degenerative changes of the apophyseal joints. Ligamentum flavum hypertrophy. Combination of factors cause spinal canal stenosis and bilateral neural foraminal narrowing and nerve root impingement. After contrast administration, there is no abnormal enhancement. Impression: Multilevel spinal canal stenosis and nerve root impingement as noted.
== END | disposition home or self-care (01) ==
LOC: RAH 10:17
PROVIDERS: ATTEND Internal Medicine
DX: M47.16 Other spondylosis with myelopathy, lumbar region (principal); M51.06 Intervertebral disc disorders with myelopathy, lumbar region; M48.07 Spinal stenosis, lumbosacral region; M43.17 Spondylolisthesis, lumbosacral region; M48.8X7 Other specified spondylopathies, lumbosacral region; R63.4 Abnormal weight loss
CPT/HCPCS: 72158; A9575

== ENCOUNTER 2024-11-28 08:25 | Observation (INO) | payer MEDICARE ==
[~2024-11-28] VITALS: Ht 172.7 cm; Wt 60.8 kg
[2024-11-28] VITALS (7 sets, daily range): BP systolic 107–123; BP diastolic 69–77; PULSE 63–67; RESP 16–20; TEMP 98–98.6; O2SAT 95–100
[~2024-11-28 08:25] MED LIST changes: -GADOTERATE MEGLUMINE 5 MMOL/10 ML VIAL IV ONE
--- NOTE | 2024-11-28 08:28 | NUR ---
PT JUST GOT BROUGHT BACK TO MY ED 11
[2024-11-28 08:40] LABS: BASOPHILS # (AUTO) 0.03 K/uL (0.00-0.20); BASOPHILS % (AUTO) 0.4 % (0.0-5.0); EOSINOPHILS % (AUTO) 2.4 % (0.0-8.0); HEMATOCRIT 41.3 % (42-54); IMMATURE GRANULOCYTE ABSOLUTE 0.03 K/uL (0-1); LYMPHOCYTES # (AUTO) 1.8 K/uL (1.0-4.8); LYMPHOCYTES % (AUTO) 22.3 % (21.0-51.0); MEAN CORPUSCULAR HEMOGLOBIN 34.2 pg (27.0-33.0); MEAN CORPUSCULAR HGB CONC 34.1 g/dL (32.0-36.0); MEAN CORPUSCULAR VOLUME 100.2 fL (79-99); MONOCYTES # (AUTO) 0.5 K/uL (0.1-1.0); MONOCYTES % (AUTO) 6.5 % (3.0-13.0); NEUTROPHILS # (AUTO) 5.6 K/uL (1.8-7.7); PLATELET COUNT (AUTO) 207 K/uL (130-400); RED BLOOD CELL COUNT(AUTO) 4.12 MIL/uL (4.50-6.20); RED CELL DISTRIBUTION WIDTH 12.9 % (11.0-15.5); WHITE BLOOD COUNT (AUTO) 8.2 K/uL (4.8-10.8)
--- NOTE | 2024-11-28 08:47 | ERN ---
General Chief Complaint: Chest Pain Stated Complaint: CHEST PAIN Time Seen by MD: 08:26 Source: patient History of Present Illness Initial Comments Patient is a 73 year male coming in complaining of left-sided chest pain. Patient states he has a history of surgery back in 2016. With the pain began at three in the morning in his present in the left upper quadrant area sharp does not radiate. Allergies: Coded Allergies: iodine (Unverified Allergy, Unknown, 02/12/21) Home Meds Reported Medications Fluticasone/Vilanterol (Breo Ellipta 100-25 Mcg INH) 100 Mcg-25 Mcg/Dose Aer.pow.ba, 1 PUFF IH DAILY for 30 Days, #1 EACH 0 Refills 09/03/24 Metoprolol Succinate (Metoprolol Succinate) 25 Mg Tab.er.24h, 1 TAB PO DAILY for 30 Days, #30 TAB 0 Refills 09/03/24 Ranolazine (Ranolazine ER) 500 Mg Tab.er.12h, 500 MG PO BID, TAB 04/22/23 Nintedanib Esylate (Ofev) 150 Mg Capsule, 150 MG PO BID, CAP 04/22/23 Isosorbide Mononitrate (Isosorbide Mononitrate ER) 60 Mg Tab.er.24h, 60 MG PO DAILY, TAB 02/12/21 Atorvastatin Calcium (Atorvastatin Calcium) 40 Mg Tablet, 40 MG PO DAILY, TAB 02/12/21 Past Medical History Past Medical History: High Cholesterol, Hypertension Past Surgical History: CABG Surgical History Other: LT KNEE, RT ANKLE ROS Dictation CONSTITUTIONAL: No chills, no fever, no weakness, no diaphoresis, no malaise. HEAD/FACE: No signs of trauma. EENT: No eye pain, no blurred vision, no tearing, no double vision, no ear pain, no ear discharge, no nose pain, no nasal congestion, no throat pain, no throat swelling, no mouth pain. RESPIRATORY: No cough, no orthopnea, no SOB, no stridor, no wheezing. CARDIOVASCULAR: chest pain, no edema, no palpitations, no syncope. GASTROINTESTINAL/ABDOMINAL: No abdominal pain, no constipation, no diarrhea, no nausea, no vomiting. GENITOURINARY: No abnormal discharge, no dysuria, no frequent urination, no hematuria. No complaints of pain in the genitals. MUSCULOSKELETAL: No back pain, no gout, no joint pain, no joint swelling, no muscle pain, no muscle stiffness, no neck pain. INTEGUMENTARY: No change in color, no change in hair/nails, no dryness, no lesion, no lumps, no rash. NEUROLOGICAL/PSYCH: No anxiety, not depressed, no emotional problem, no headache, no numbness, no pre-existing deficit, no history of seizures, no tremors, no weakness. HEMATOLOGIC/LYMPHATIC: Not anemic, no history of blood clots, no apparent bleeding, no bruising, glands not swollen. All Systems Negative, Except as Noted. Physical Exam Physical Exam Dictation VITAL SIGNS: Reviewed. GENERAL APPEARANCE: Alert, oriented x3, no acute distress, obese. HEAD AND FACE: Non-traumatic. EYES: PERRL, pink conjunctivas, eyelid no trauma, anterior chamber clear. EARS: Pinnas intact and no signs of trauma or erythema. Ear canals clear and no discharge. TMs no erythema. NOSE: No discharge, no bleeding. OROPHARYNX: Mouth normal, teeth no caries, tongue pink. Pharynx clear, no erythema. Tonsils no exudates, no abscesses noted. Mucous membrane moist. NECK: Supple, non-tender, no thyromegaly, no masses, no JVD, no bruits. BREAST: Deferred. CHEST: No tenderness, no crepitus, no paradoxical movement, no retractions. LUNGS: Clear, well-ventilated, symmetric, no rales, no wheezing, no rhonchi, no stridor, good breath sounds bilaterally. HEART: Regular rate, regular rhythm, no murmur, no gallops. VASCULAR: No peripheral edema. ABDOMEN: Soft, positive bowel sounds, nondistended, no guarding, nontender, no rebound, no masses no hepatomegaly, no splenomegaly, no Cortez's sign, no hernias. RECTAL: Deferred. GENITAL: Deferred. NEUROLOGICAL: Normal speech, gross motor function intact, gross sensory function intact. MUSCULOSKELETAL: Neck nontender, full range of motion, back nontender, full range of motion. EXTREMITIES: Nontender, full range of motion. SKIN: Color pink, dry, no turgor, no rash, no lacerations, no abrasions, no contusions. LYMPHATICS: Deferred. Results Laboratory and Microbiology Lab and Micro Result Laboratory Tests Test 11/28/24 08:30 11/28/24 09:46 11/28/24 11:12 White Blood Count 8.2 K/uL (4.8-10.8) Red Blood Count 4.12 MIL/uL (4.50-6.20) L Hemoglobin 14.1 g/dL (14.0-18.0) Hematocrit 41.3 % (42-54) L Mean Corpuscular Volume 100.2 fL (79-99) H Mean Corpuscular Hemoglobin 34.2 pg (27.0-33.0) H Mean Corpuscular Hemoglobin Concent 34.1 g/dL (32.0-36.0) Red Cell Distribution Width 12.9 % (11.0-15.5) Platelet Count 207 K/uL (130-400) Mean Platelet Volume 8.2 fL (7.5-10.5) Immature Granulocyte % (Auto) 0.4 % (0-1) Neutrophils (%) (Auto) 68.0 % (40.0-77.0) Lymphocytes (%) (Auto) 22.3 % (21.0-51.0) Monocytes (%) (Auto) 6.5 % (3.0-13.0) Eosinophils (%) (Auto) 2.4 % (0.0-8.0) Basophils (%) (Auto) 0.4 % (0.0-5.0) Neutrophils # (Auto) 5.6 K/uL (1.8-7.7) Lymphocytes # (Auto) 1.8 K/uL (1.0-4.8) Monocytes # (Auto) 0.5 K/uL (0.1-1.0) Eosinophils # (Auto) 0.20 K/uL (0.00-0.70) Basophils # (Auto) 0.03 K/uL (0.00-0.20) Absolute Immature Granulocyte (auto 0.03 K/uL (0-1) Nucleated Red Blood Cells 0.0 % (0.0-0.19) Prothrombin Time 10.8 SEC (9.6-11.6) Prothromb Time International Ratio 1.02 (0.85-1.15) Activated Partial Thromboplast Time 27.9 SEC (26.3-35.5) Sodium Level 136 mmol/L (136-145) Potassium Level 4.7 mmol/L (3.5-5.1) Chloride Level 99 mmol/L (101-111) L Carbon Dioxide Level 31 mmol/L (21-32) Blood Urea Nitrogen 14 mg/dL (7-18) Creatinine 0.9 mg/dL (0.5-1.3) Glomerular Filtration Rate Calc 91 mL/min (>90) Random Glucose 141 mg/dL (70-105) H Total Calcium 8.7 mg/dL (8.5-10.1) Magnesium Level 1.90 mg/dL (1.80-2.40) Total Creatine Kinase 28 U/L (21-232) # Troponin I High Sensitivity 4 ng/L (4-75) 6 ng/L (4-75) B-Type Natriuretic Peptide 39 pg/mL (0-100) Urine Color LIGHT-YELLOW (YELLOW) Urine Appearance CLEAR (CLEAR) Urine pH 6.0 (5.0-8.0) Urine Specific [place] 1.009 (1.001-1.031) Urine Protein NEGATIVE mg/dL (NEGATIVE) Urine Glucose (UA) NEGATIVE mg/dL (NEGATIVE) Urine Ketones NEGATIVE mg/dL (NEGATIVE) Urine Occult Blood NEGATIVE (NEGATIVE) Urine Nitrate NEGATIVE (NEGATIVE) Urine Bilirubin NEGATIVE mg/dL (NEGATIVE) Urine Urobilinogen 0.2 mg/dL (0.2-1.0) Urine Leukocyte Esterase NEGATIVE [place]/uL Labs Reviewed?: Yes EKG/XRAY/US/CT/MRI EKG Comment 11/28/2024 time 8:26 a.m. Ventricular rate 68 Sinus rhythm [place] [address] wave elevation [place] [address] IMAGING REPORT Signed PATIENT: MAGED PRUITT MR#: [id number] : 1950 SEX: M AGE: 73 LOCATION: [facility] ORDER 9 STATUS: REG ER REPORT#: [id number] SERVICE 8 REASON: cp ORDERING PHYSICIAN: RAVI HERNADEZ MD PROCEDURE: CXR1VW - CHEST 1VW Exam Type: CHEST 1VW Clinical Information: cp Comparison: None Findings: Status post median sternotomy. The lungs exam demonstrates interstitial markings prominence consistent with interstitial pulmonary fibrotic changes. There is no airspace disease to suggest pneumonia. The heart is normal in size. The bone examination shows no significant abnormalities. Impression: Interstitial pulmonary fibrotic changes. No airspace disease. DICTATED BY: VICKY ALCANTARA MD DATE: 11/28/24914 ELECTRONICALLY SIGNED BY: VICKY ALCANTARA MD DATE: 11/28/24916 [facility] MDM: Differential diagnosis: Chest pain, angina, NSTEMI, STEMI, Rationale: Tests considered and ordered secondary to shared decision making include: labs, ECG and radiology Previous outside records reviewed: Old ER visits. Risk of complication and/or morbidity or mortality of patient management: None Medications-Per medication reconciliation Need for hospitalization: Patient does meet criteria for hospitalization. Need for emergency major/minor surgery: No There are no social concerns with this patient. Prescription drug management Prescriptions will include symptomatic care Patient's prior external medical records from other ER visits were reviewed by me as indicated. Prior testing and results from previous visits were reviewed. Prior tests were taken into account with medical decision making and resource utilization, independent historian/historians were used to obtain complete medical history. I independently interpreted the test that were performed, results were reviewed by me and considered findings on radiology if ordered. Medical management and examination interpretation discussions were had by me with other qualified healthcare professionals as indicated for the patient's care. Patient will be admitted under the care of Dr Contreras for ongoing mgmt of chest pain with elevated heart score. ED Course Orders Procedure Category Date Status Time Cbc With Differential LAB 11/28/24 Complete 08:29 Prothrombin Time With LAB 11/28/24 Complete INR 08:29 B-Type Natriuretic LAB 11/28/24 Complete Peptide 08:29 Chest 1vw RAD 11/28/24 Resulted 08:29 12 Lead Ekg Tracing- EKG 11/28/24 Complete Technical 08:29 Magnesium LAB 11/28/24 Complete 08:29 Creatine Kinase, Total LAB 11/28/24 Complete 08:29 Troponin I High LAB 11/28/24 Complete Sensitivity 08:29 Urinalysis Profile LAB 11/28/24 Complete 08:29 Partial LAB 11/28/24 Complete Thromboplastin Time 08:29 Basic Metabolic Panel LAB 11/28/24 Complete 08:29 Nitroglycerin 0.4mg PHA 11/28/24 Complete Sl Tab (Nitrostat) 08:30 Aspirin 81mg Chew Tab PHA 11/28/24 Complete (Aspirin 81mg Chew 08:30 Troponin I High LAB 11/28/24 Complete Sensitivity 09:33 Current Medications Medications (Trade) Dose Ordered Sig/Anna Route PRN Reason Start Time Stop Time Status Last Admin Dose Admin Aspirin (Aspirin 81mg Chew Tab) 81 mg STK-MED ONCE .ROUTE 11/28/24 08:30 11/28/24 08:31 DC 11/28/24 09:28 Nitroglycerin (Nitrostat) 0.4 mg STK-MED ONCE SL 11/28/24 08:30 11/28/24 08:30 DC 11/28/24 09:27 Vital Signs Date Time Temp Pulse Resp B/P (MAP) Pulse Ox O2 Delivery O2 Flow Rate FiO2 11/28/24 08:26 98.4 79 20 158/86 99 Room Air 0 HEART Score Response (Comments) Value History: High suspicion (+2) 2 EKG: Repolarization changes 1 Age: > 65yrs (+2) 2 Risk Factors: 3+ risk factors (+2) 2 Initial Troponin: Normal limit (0) 0 HEART Score Risk: High Risk for MACE (7-10) Total 7 DX & DISP Disposition: Inpatient Decision to Admit Time: 13:08 Departure Impression: Primary Impression: Chest pain Condition: Stable Referrals: KARENA CONTRERAS MD (PCP) RAVI HERNADEZ MD November 28, 2024 08:47
[2024-11-28 08:49] LABS: INR 1.02 (0.85-1.15); PROTHROMBIN TIME 10.8 SEC (9.6-11.6)
[2024-11-28 08:51] LABS: PARTIAL THROMBOPLASTIN TIME 27.9 SEC (26.3-35.5)
[2024-11-28 09:02] LABS: CREATININE 0.9 mg/dL (0.5-1.3); MAGNESIUM 1.9 mg/dL (1.80-2.40); POTASSIUM 4.7 mmol/L (3.5-5.1)
[2024-11-28 09:10] LABS: B-TYPE NATRIURETIC PEPTIDE 39 pg/mL (0-100)
--- NOTE | 2024-11-28 09:17 | HMCIMG ---
Exam Type: CHEST 1VW Clinical Information: cp Comparison: None Findings: Status post median sternotomy. The lungs exam demonstrates interstitial markings prominence consistent with interstitial pulmonary fibrotic changes. There is no airspace disease to suggest pneumonia. The heart is normal in size. The bone examination shows no significant abnormalities. Impression: Interstitial pulmonary fibrotic changes. No airspace disease.
[2024-11-28] MEDS: NITROGLYCERIN 0.4 MG SL TAB SL ONE (09:27)
[2024-11-28] MEDS: ASPIRIN 81MG CHEW TAB ONE (09:28)
--- NOTE | 2024-11-28 09:33 | NUR ---
POST NTG SL PT STATES THAT SHORTLY AFTER THE NTG SL WAS PROVIDED, HIS [place] WENT AWAY
--- NOTE | 2024-11-28 10:20 | NUR ---
PENDING DISPOSITION. ALL RESULTS IN
--- NOTE | 2024-11-28 11:06 | EKG ---
[facility] Test Date: 2024-11-28 Test Time: 08:26:56 Pat Name: MAGED PRUITT Department: [facility] Room: 305 Gender: M Manager Clinical Pharmacy: [id number] : 1950 Requested By: RAVI HERNADEZ Order Number: [id number] Reading MD: Rony Vincent Measurements Intervals [place] Rate: 68 P: 42 IA: 174 QRS: 61 QRSD: 93 T: 60 QT: 382 QTc: 406 Interpretive Statements Sinus rhythm Compared to ECG 02/12/2021 07:40:05 Right-axis deviation no longer present Electronically Signed On 11-28-2024 18:57:41 CDT by Rony Vincent Please click the below link to view image of tracing.
[2024-11-28 11:25] LABS: APPEARANCE,URINE CLEAR (CLEAR); BILIRUBIN,URINE NEGATIVE (NEGATIVE); COLOR,URINE LIGHT-YELLOW (YELLOW); GLUCOSE, URINE (UA) NEGATIVE (NEGATIVE); KETONES,URINE NEGATIVE (NEGATIVE); LEUKOCYTE ESTERASE ,URINE NEGATIVE Leu/uL (NEGATIVE); NITRATE,URINE NEGATIVE (NEGATIVE); OCCULT BLOOD,URINE NEGATIVE (NEGATIVE); PROTEIN,URINE NEGATIVE (NEGATIVE); UROBILINOGEN,URINE 0.2 mg/dL (0.2-1.0)
[2024-11-28 11:29] LABS: ADD UA MICROSCOPIC NO
[2024-11-28] MEDS ORDERED: ATOR10 PO (13:37)
[2024-11-28] MEDS ORDERED: METO-391 PO ×2 (13:37→13:59)
[2024-11-28] MEDS ORDERED: CLOP75TA32 PO ×2 (13:37→13:58)
--- NOTE | 2024-11-28 13:38 | NUR ---
MEDICATION RECONCILATION COMPLETE
[2024-11-28] MEDS ORDERED: AZEL137S11 NS (13:57)
[2024-11-28] MEDS ORDERED: LORA10TA7 PO (13:57)
[2024-11-28] MEDS ORDERED: FLUT15.845 NS ×2 (13:57→14:07)
[2024-11-28] MEDS ORDERED: ALBU18HF7 IH (13:57)
[2024-11-28] MEDS ORDERED: ATOR20TA65 PO (13:59)
--- NOTE | 2024-11-28 14:19 | NUR ---
CHEST "PRICKS" DR RIBEIRO WAS SENT A MESSAGE IN REFERENCE TO PT COMPLAINT OF INTERMITTENT CHEST PRICKS.
--- NOTE | 2024-11-28 14:27 | NUR ---
UPON ENTERING PT ROOM TO GIVE HIM HIS NTG SL FOR CHEST PRICKS BUT HE STATED THE PAIN IS GONE AND WANTS TO HOLD OFF FOR NOW.
[2024-11-28] MEDS ORDERED: acetaMINOPHEN 325 MG TAB PO PRN ×2 (14:30)
[2024-11-28] MEDS ORDERED: PoTASSium chl 10% ELIXIR 20MEQ 20 MEQ/15 ML UDCUP PO PRN (14:30)
[2024-11-28] MEDS ORDERED: hydrALAZine 25MG TABLET PO PRN (14:30)
[2024-11-28] MEDS ORDERED: AZELASTINE HCL NASAL PRN (14:30)
[2024-11-28] MEDS ORDERED: NITROGLYCERIN 0.4 MG SL TAB SL PRN (14:30)
[2024-11-28] MEDS ORDERED: LACTULOSE 20 GM/30 ML UDCUP PO PRN (14:30)
[2024-11-28] MEDS ORDERED: ondanSETRON 4MG INJ IV PRN (14:30)
[2024-11-28] MEDS ORDERED: hydrALAZine 20MG/ML VIAL IV PRN (14:30)
[2024-11-28] MEDS ORDERED: guaiFENesin-DM 200/20MG 10ML PO PRN (14:30)
[2024-11-28] MEDS ORDERED: NON-FORMULARY MEDICATION 1 EACH (Albuterol Sulfate (Ventolin Hfa) 2 PUFF) IH PRN (14:30)
[2024-11-28] MEDS ORDERED: PoTASSium chloRIDE 20MEQ ER 20 MEQ ERTAB PO PRN (14:30)
[2024-11-28] MEDS ORDERED: PoTASSium chloRIDE 20MEQ/100ML 100 ML IV PRN ×2 (14:30)
[2024-11-28] MEDS ORDERED: ALBUTEROL 0.083% 2.5 MG/3 ML INH IH PRN (14:30)
--- NOTE | 2024-11-28 15:00 | NUR ---
BED ASSIGNMENT BED 305 WAS ASSIGNED BY KELVIN ALEXANDER [facility] BUT WE WERE TOLD THAT THE ROOM IS CURRENTLY DIRTY
[2024-11-28] MEDS: MAG/ALUM/SIMETH 30 ML UDCUP PO PRN (15:15)
--- NOTE | 2024-11-28 15:25 | NUR ---
PT CURRENTLY DENIES ANY CP. HE ALSO ATE ALL OF HIS LATE LUNCH TRAY
--- NOTE | 2024-11-28 15:29 | NUR ---
DCP: HOME Pt currently lives with his Suze Javier [phone] in their home. Pt denied any insecurities with food, [facility], and/or utilities. Pt uses a cane to get around at home. Pt does not have any home health or provider services. Pt is able to complete ADLs independently. PCP is Susannah Contreras and uses [facility] for any RX needs. At DC pt will return home and can assist with transportation. Addendum: 11/28/24 at 1531 by REY JONES SS Amended: Links added.
[2024-11-28] MEDS: 0.9%NACL 1000ML 1,000 ML IV SCH (19:45)
[2024-11-28] MEDS: RANOLAZINE 500 MG TAB.SR.12H PO SCH (20:31)
[2024-11-28] MEDS: atorVAStatin 20 MG TABLET PO SCH (20:32)
[2024-11-28] MEDS: PANTOPrazole 40 MG TAB DR PO SCH (20:32)
[2024-11-28] MEDS: LORATAdine 10 mg 10 MG TABLET PO PRN (23:26)
[2024-11-29 03:10] VITALS: BP 124/75; PULSE 52; RESP 20; TEMP 98
[2024-11-29 07:38] VITALS: PULSE 61; RESP 18; O2SAT 98
[2024-11-29 08:00] VITALS: BP 114/72; PULSE 85; RESP 19; TEMP 97.5
[2024-11-29] MEDS ORDERED: REGADENOSON 0.4 MG/5 ML PF SYG IVP ONE (08:18)
[2024-11-29] MEDS: VILANTEROL IH SCH (08:35)
[2024-11-29] MEDS: cloPIDOgrel 75MG TAB PO SCH (08:35)
[2024-11-29] MEDS: ISOSORBIDE MONO 60MG SR TAB PO SCH (08:35)
[2024-11-29] MEDS: FLUTICASONE IH SCH (08:35)
[2024-11-29] MEDS: metOPROLol sucCINATE 50 MG TAB.SR.24H PO SCH (08:36)
[2024-11-29] MEDS: ENOXAPARIN SODIUM 30 MG/0.3 ML SQ SCH (08:37)
--- NOTE | 2024-11-29 09:04 | HP ---
HISTORY AND PHYSICAL Date of Visit: November 28, 2024 Time of Visit: 14:49 ADMISSION DATE: November 28, 2024 at 14:07 CC: LEFT SIDED CP HPI: THIS IS A 73 YR OLD MAN WITH HISTORY OF CAD HTN PULMONARY FIBROSIS WHO PRESENTED WITH LEFT SIDED CHEST PAIN DESCRIBED SHARP AND SHOOTING AND INTERMITTENT LASTING 1-5 MINUTES AND STARTED YESTERDAY. IT WAS WAXING AND WANING AND DECIDED TO COME TO THE ER FOR EVALUATION. HE FEVERS CHILLS OR COUGH, NO RELATION TO MEALS BUT THE LAST EPISODE WAS VERY SEVERE IN NATURE AND WOKE HIM FROM HIS SLEEP SO HE DECIDED NOT TO IGNORE IT. HE DID NOT TAKE NTG SL AT HOME BECAUSE HE WAS NO SO SURE IT WAS HIS HEART. HE HAS BEEN IN A MIST OF A WORK UP FOR ABNORMAL WEIGHT LOSS WHICH HE HAS JUST COMPLETED A GI WORK UP WITH BENIGN FINDING. HIS WEIGHT LOSS HAS BEEN ATTRIBUTED TO HIS OFEV WHICH HE HAS BEEN TAKING FOR HIS PULMONARY FIBROSIS AND HAS AN UPCOMING APPT WITH PULMONOLOGY TO ADDRESS. 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 OF NOTE WHILE IN THE ER HIS CP DID RESOLVE WITH ONE NTG SL. THERE WAS NO RADIATION OF PAIN AND NO ASSOCIATED NAUSEA. NO INCREASED SOB WITH THE PAIN AND NO LEG SWELLING OR PALPITATIONS. 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 S/P L KNEE MENISCAL TEAR SURGERY, ARTHROTOMY S/P R ANKLE ORIF S/P SINUS SURGERY SOCIAL HISTORY: AND LIVES WITH FAMILY HISTORY: + DM HTN CHOL ^ Patient History: Cancer FATHER, , Onset:Unknown Family history: Diabetes mellitus MOTHER, Family history: Hypertension MOTHER, , Onset:Unknown Allergies: Coded Allergies: iodine (Unverified Allergy, Unknown, 02/12/21) Scheduled Atorvastatin Calcium (Atorvastatin Calcium), 20 MG PO HS Clopidogrel Bisulfate (Clopidogrel), 75 MG PO DAILY Fluticasone/Vilanterol (Breo Ellipta 100-25 Mcg INH), 1 PUFF IH DAILY, (Reported) Isosorbide Mononitrate (Isosorbide Mononitrate ER), 60 MG PO DAILY, (Reported) Metoprolol Succinate (Metoprolol Succinate), 50 MG PO DAILY Nintedanib Esylate (Ofev), 150 MG PO BID, (Reported) Ranolazine (Ranolazine ER), 500 MG PO BID, (Reported) Scheduled PRN Albuterol Sulfate (Ventolin Hfa), 2 PUFF IH Q4HPRN PRN for wheezing Azelastine HCl (Azelastine HCl), 1 SPRAY NS BID PRN for allergies Fluticasone Propionate (Fluticasone Propionate), 2 SPRAY NS BID PRN for NASAL CONGESTION Loratadine (Loratadine), 10 MG PO DAILY PRN for allergies Discontinued Medications Atorvastatin Calcium (Atorvastatin Calcium), 40 MG PO DAILY, (Reported) Atorvastatin Calcium (Lipitor), 1 TAB PO DAILY, (Reported) Clopidogrel Bisulfate (Clopidogrel), 1 TAB PO DAILY, (Reported) Metoprolol Succinate (Metoprolol Succinate), 1 TAB PO DAILY, (Reported) Metoprolol Succinate (Metoprolol Succinate), 1 TAB PO DAILY, (Reported) Review of Systems Normal Constitutional:, Normal Eyes:, Normal Ear/Nose/Mouth/Throat, Normal Respiratory:, Normal Gastrointestinal:, Normal Genitourinary:, Normal Integumentary:, Normal Musculoskeletal:, Normal Neurological:, Normal Psychological:, Normal Endocrine:, Normal Hematologic/Lymphatic:, Normal Allergic/Immunologic:; Abnormal Cardiovascular: Physical Exam Vital Signs Vital Signs Date Time Temp Pulse Resp B/P (MAP) Pulse Ox O2 Delivery O2 Flow Rate FiO2 11/28/24 08:26 98.4 79 20 158/86 99 Room Air 0 11/28/24 10:00 21 Appearance: Well dev, well nourished Eyes: Clear, PERRL, EOM Normal Ear/Nose/Mouth/Throat: Landmarks WNL, Oropharynx WNL Neck: Symmetric, trach midline, Thyroid WNL Cardiovascular: PMI WNL, Regular Rate, Regular Rhythm Respiratory: No Retractions, No rubs/wheezing, Lungs clear G.I.: Normal bowel sounds, No pain w/ palpations, No rebound tenderness Lymphatic: No lymphadenopathy neck, No lymphadenopathy axilla Musculoskeletal: Normal ROM, Strength/Tone WNL Skin: No rash/ulcers, No induration/nodules Neurology: Nerves I-XII intact, Sensation WNL Psychology: Insight WNL, Orientation WNL, Memory WNL, Affect WNL Diagnostics Laboratory Tests Test 11/28/24 08:30 11/28/24 09:46 11/28/24 11:12 11/28/24 14:30 Range/Units White Blood Count 8.2 4.8-10.8 K/uL Red Blood Count 4.12 4.50-6.20 MIL/uL Hemoglobin 14.1 14.0-18.0 g/dL Hematocrit 41.3 42-54 % Mean Corpuscular Volume 100.2 79-99 fL Mean Corpuscular Hemoglobin 34.2 27.0-33.0 pg Mean Corpuscular Hemoglobin Concent 34.1 32.0-36.0 g/dL Red Cell Distribution Width 12.9 11.0-15.5 % Platelet Count 207 130-400 K/uL Mean Platelet Volume 8.2 7.5-10.5 fL Immature Granulocyte % (Auto) 0.4 0-1 % Neutrophils (%) (Auto) 68.0 40.0-77.0 % Lymphocytes (%) (Auto) 22.3 21.0-51.0 % Monocytes (%) (Auto) 6.5 3.0-13.0 % Eosinophils (%) (Auto) 2.4 0.0-8.0 % Basophils (%) (Auto) 0.4 0.0-5.0 % Neutrophils # (Auto) 5.6 1.8-7.7 K/uL Lymphocytes # (Auto) 1.8 1.0-4.8 K/uL Monocytes # (Auto) 0.5 0.1-1.0 K/uL Eosinophils # (Auto) 0.20 0.00-0.70 K/uL Basophils # (Auto) 0.03 0.00-0.20 K/uL Absolute Immature Granulocyte (auto 0.03 0-1 K/uL Nucleated Red Blood Cells 0.0 0.0-0.19 % Prothrombin Time 10.8 9.6-11.6 SEC Prothromb Time International Ratio 1.02 0.85-1.15 Activated Partial Thromboplast Time 27.9 26.3-35.5 SEC Sodium Level 136 136-145 mmol/L Potassium Level 4.7 3.5-5.1 mmol/L Chloride Level 99 101-111 mmol/L Carbon Dioxide Level 31 21-32 mmol/L Blood Urea Nitrogen 14 7-18 mg/dL Creatinine 0.9 0.5-1.3 mg/dL Glomerular Filtration Rate Calc 91 >90 mL/min Random Glucose 141 70-105 mg/dL Total Calcium 8.7 8.5-10.1 mg/dL Magnesium Level 1.90 1.80-2.40 mg/dL Total Creatine Kinase 28 21-232 U/L Troponin I High Sensitivity 4 6 5 4-75 ng/L B-Type Natriuretic Peptide 39 0-100 pg/mL Urine Color LIGHT-YELLOW YELLOW Urine Appearance CLEAR CLEAR Urine pH 6.0 5.0-8.0 Urine Specific [place] 1.009 1.001-1.031 Urine Protein NEGATIVE NEGATIVE mg/dL Urine Glucose (UA) NEGATIVE NEGATIVE mg/dL Urine Ketones NEGATIVE NEGATIVE mg/dL Urine Occult Blood NEGATIVE NEGATIVE Urine Nitrate NEGATIVE NEGATIVE Urine Bilirubin NEGATIVE NEGATIVE mg/dL Urine Urobilinogen 0.2 0.2-1.0 mg/dL Urine Leukocyte Esterase NEGATIVE NEGATIVE [place]/uL Test 11/28/24 19:25 Range/Units Troponin I High Sensitivity 6 4-75 ng/L Assessment/Plan Assessment/Plan ASSESSMENT: THIS IS A 73 YR OLD MAN WITH HISTORY OF HYPERLIPIDEMIA - MIXED LBP WITH RADICULOPATHY PROGRESSIVE, 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/ LUMBAR MYELOPATHY CAD S/P 5 V CABG 12/31 - EF 65 %, S/P LCX STENT 03/04 W RECURRENT NONOBSTRUCTIVE 4/5 GRAFTS HYPERTENSIVE HEART AND RENAL DIS W 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
[2024-11-29 12:00] VITALS: BP 106/69; PULSE 68; RESP 19; TEMP 97.4
[2024-11-29] MEDS ORDERED: PANT40TA54 PO (15:59)
[2024-11-29 16:00] VITALS: BP 112/70; PULSE 75; RESP 19
--- NOTE | 2024-11-29 16:59 | HMCSR ---
APPROVED REPORT Height: 5 ft 8in Weight: 134 lbs TEST INDICATIONS Chest Pain The imaging protocol used to acquire images was Rest Tc-99m/stress Tc-99m 1 day Consent: The procedure was explained and understood by the patient. Informerd consent was witnessed Gustavo Garcia RN First, low dose rest was performed then high dose stress. RESTING DATA: The resting ekg shows: NSR Rest SPECT myocardial perfusion imaging was performed in supine position minutes following the intra venous injection of 11 mCi of Tc-99 Sestamibi. Time of rest injection: Date: 11/29/2024 Time of rest imaging: Date: 11/29/2024 PHARMACOLOGIC STRESS: Pharmacologic stress test was performed by injecting regadenoson 0.4 mg IV push followed by the intra venous injection of 27 mCi of Tc-99 Sestamibi. Time of stress injection: Date: 11/29/2024 Time of stress imaging: Date: 11/29/2024 Heart Rate at time of stress injection: 58 bpm. The images were gated to evaluate regional wall motion and calculate left ventricular ejection fracti on. STRESS DETAILS Reason for Termination: Infusion complete Stress Symptoms: Dyspnea Max HR Achieved: 85 bpm % of APMHR Achieved: 68 Max Blood Pressure: 152/82 mmHg Stress ECG: NSR Study quality was good. Lung uptake was Normal. Artifact: No artifact LEFT VENTRICLE Size: The left ventricular size is normal. Systolic Function:The left ventricular systolic function is normal. Wall Motion: No regional wall motion abnormalities noted. The left ventricular ejection fraction was calculated to be 75%.TID = 1.04. LV PERFUSION The rest and stress images show normal perfusion. RV Size/Shape Normal RV Conclusion The left ventricular ejection fraction was calculated to be 75%.TID = 1.04. The rest and stress images show normal perfusion. Normal, low risk.
--- NOTE | 2024-11-29 17:13 | DS ---
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 The lungs exam demonstrates interstitial markings prominence consistent with interstitial pulmonary fibrotic changes. There is no airspace disease to suggest pneumonia. The heart is normal in size. The bone examination shows no significant abnormalities. Impression: Interstitial pulmonary fibrotic changes. No airspace disease. PROCEDURES: LEXISCAN STRESS TEST 11/29/2024 Conclusion: The left ventricular ejection fraction was calculated to be 75%.TID = 1.04. The rest and stress images show normal perfusion. Normal, low risk. HOSPITAL COURSE: THIS IS A 73 YR OLD MAN WITH THE ABOVE PMH WHO PRESENTED WITH ATYPICAL CP. HE WAS ADMITTED AND RULED OUT FOR AN NE WITH SERIAL CARDIAC ENZYMES. HIS INTERMITTENT LEFT SIDED CHEST PAIN DID RESPOND TO NTG SL GIVEN IN THE ER. HIS METOPROLOL WAS RECENTLY LOWERED BY CARDIOLOGY DUE TO BORDERLINE LOW BLOOD PRESSURES IN HIS COMMUTER TRAIN OPERATOR'S OFFICE. THE PLAN FROM CARDIOLOGY WAS TO PROCEED WITH A STRESS TEST IF HIS ANGINAL SYMPTOMS RECURRED. THEREFORE A LEXISCAN STRESS TEST WAS DONE DURING THIS HOSPITAL STAY AND IT WAS NEGATIVE. HE WAS SUSPECTED OF POSSIBLY HAVING GI RELATED SYMPTOMS AFTER A RECENT GI WORK UP AN OUTPATIENT FOR ABNORMAL WEIGHT LOSS. HE HAD AN EGD AND COLONOSCOPY 08/2024 WITH FINDINGS OF A HIATAL HERNIA WITH GASTRITIS AND METAPLASIA, H PYLORI AND COLON POLYPS. HE HAD RECENTLY STOPPED HIS PPI AFTER TREATMENT FOR HIS H PYLORI RELATED GASTRITIS. IT WAS RESUMED DURING HIS HOSPITAL STAY AND HE DID WELL WITH RESUMPTION OF THIS MEDICATION. HE WAS THEN DISCHARGED IN STABLE CONDITION TO FOLLOW UP AN OUTPATIENT. DIET: HEART HEALTHY ACTIVITY: RESUME PREVIOUS ACTIVITY CONDITION: STABLE EQUIPMENT: NONE FOLLOW UP APPOINTMENT(S): DR CONTRERAS 2-5 DAYS DISPOSITION: HOME CODE STATUS: FULL MEDICATION RECONCILIATION : RESUME PREVIOUS HOME MEDICATIONS ADDED PANTOPRAZOLE 40 MG PO DAILY * Home Meds Active Scripts Pantoprazole Sodium (Pantoprazole Sodium) 40 Mg Tablet.dr, 1 TAB PO DAILY for 90 Days, #90 TAB 1 Refill Prov:KARENA CONTRERAS MD 11/29/24 Fluticasone Propionate (Fluticasone Propionate) 50 Mcg/Actuation [place].susp, 2 SPRAY NS BID PRN for NASAL CONGESTION for 90 Days, #16 GM 0 Refills Prov:KARENA CONTRERAS MD 11/28/24 Metoprolol Succinate (Metoprolol Succinate) 50 Mg Tab.er.24h, 50 MG PO DAILY, #90 TAB Prov:KARENA CONTRERAS MD 11/28/24 Atorvastatin Calcium (Atorvastatin Calcium) 20 Mg Tablet, 20 MG PO HS, #90 TAB Prov:KARENA CONTRERAS MD 11/28/24 Clopidogrel Bisulfate (Clopidogrel) 75 Mg Tablet, 75 MG PO DAILY, #90 TAB Prov:KARENA CONTRERAS MD 11/28/24 Azelastine HCl (Azelastine HCl) 137 Mcg (0.1 %) [place].pump, 1 SPRAY NS BID PRN for allergies for 30 Days, #30 ML 0 Refills Prov:KARENA CONTRERAS MD 11/28/24 Albuterol Sulfate (Ventolin Hfa) 90 Mcg Hfa.aer.ad, 2 PUFF IH Q4HPRN PRN for wheezing for 30 Days, #18 GM 0 Refills Prov:KARENA CONTRERAS MD 11/28/24 Loratadine (Loratadine) 10 Mg Tablet, 10 MG PO DAILY PRN for allergies, #90 TAB Prov:KARENA CONTRERAS MD 11/28/24 Reported Medications Fluticasone/Vilanterol (Breo Ellipta 100-25 Mcg INH) 100 Mcg-25 Mcg/Dose Aer.pow.ba, 1 PUFF IH DAILY for 30 Days, #1 EACH 0 Refills 09/03/24 Ranolazine (Ranolazine ER) 500 Mg Tab.er.12h, 500 MG PO BID, TAB 04/22/23 Nintedanib Esylate (Ofev) 150 Mg Capsule, 150 MG PO BID, CAP 04/22/23 Isosorbide Mononitrate (Isosorbide Mononitrate ER) 60 Mg Tab.er.24h, 60 MG PO DAILY, TAB 02/12/21 Discontinued Reported Medications Clopidogrel Bisulfate (Clopidogrel) 75 Mg Tablet, 1 TAB PO DAILY for 30 Days, #30 TAB 0 Refills 11/28/24 Atorvastatin Calcium (LIPITOR) 20 Mg Tab, 1 TAB PO DAILY for 30 Days, #30 TAB 0 Refills 11/28/24 Metoprolol Succinate (Metoprolol Succinate) 50 Mg Tab.er.24h, 1 TAB PO DAILY for 30 Days, #30 TAB 0 Refills 11/28/24 Metoprolol Succinate (Metoprolol Succinate) 25 Mg Tab.er.24h, 1 TAB PO DAILY for 30 Days, #30 TAB 0 Refills 09/03/24 Atorvastatin Calcium (Atorvastatin Calcium) 40 Mg Tablet, 40 MG PO DAILY, TAB 02/12/21 KARENA CONTRERAS MD November 29, 2024 17:13
== END 2024-11-29 18:33 | disposition home or self-care (01) ==
LOC: EDH 08:25 → EDHIP 14:07 → INTOOBSV 14:07 → 3BH 15:45
PROVIDERS: ADMIT Internal Medicine; ATTEND Internal Medicine
DX: R07.89 Other chest pain (principal); K29.70 Gastritis, unspecified, without bleeding; K31.A0 Gastric intestinal metaplasia, unspecified; E78.5 Hyperlipidemia, unspecified; M51.16 Intervertebral disc disorders with radiculopathy, lumbar region; I25.10 Atherosclerotic heart disease of native coronary artery without angina pectoris; I13.10 Hypertensive heart and chronic kidney disease without heart failure, with stage 1 through stage 4 chronic kidney disease, or unspecified chronic kidney disease; N18.2 Chronic kidney disease, stage 2 (mild); J84.9 Interstitial pulmonary disease, unspecified; J84.10 Pulmonary fibrosis, unspecified; Z88.8 Allergy status to other drugs, medicaments and biological substances; Z95.1 Presence of aortocoronary bypass graft; Z79.899 Other long term (current) drug therapy; Z86.0100 Personal history of colon polyps, unspecified; Z96.661 Presence of right artificial ankle joint
CPT/HCPCS: 99285; 82550; 83735; 84484 ×4; 80048; 83880; 85025; 85610; 85730; 81003; 36415; 71045; 93005; 96372; 96360; 96361 ×2; 93017; 78452; G0378 ×25; J1650; J2785; A9500 ×2

== ENCOUNTER 2025-01-24 12:59 | Observation (INO) | payer MEDICARE ==
[~2025-01-24] VITALS: Ht 172.7 cm; Wt 59.7 kg
[~2025-01-24 12:59] MED LIST changes: +ALBU18HF7 IH; +ATOR20TA65 PO; -ATOR40TA71 PO; +AZEL137S11 NS; +CLOP75TA32 PO; +FLUT15.845 NS; +LORA10TA7 PO; +METO-391 PO; -METO-408 PO; +PANT40TA54 PO
--- NOTE | 2025-01-24 13:06 | EKG ---
[facility] Test Date: 2025-01-24 Test Time: 13:01:59 Pat Name: MAGED PRUITT Department: [facility] Room: 407 Gender: M Diversional Therapist: [id number] : [id number] Requested By: ARUNA BRIGHT Order Number: [id number] Reading MD: Lila Vincent Measurements Intervals [place] Rate: 100 P: 56 VT: 142 QRS: 90 QRSD: 81 T: 50 QT: 310 QTc: 400 Interpretive Statements Sinus tachycardia Compared to ECG 11/28/2024 08:26:56 Sinus rhythm no longer present Electronically Signed On 01-25-2025 12:24:00 CDT by Lila Vincent Please click the below link to view image of tracing.
[2025-01-24 13:22] LABS: IMMATURE GRANULOCYTE ABSOLUTE 0.10 K/uL (0-1); NUCLEATED RED BLOOD CELLS 0.0 % (0.0-0.19); PLATELET COUNT (AUTO) 280 K/uL (130-400); RED BLOOD CELL COUNT(AUTO) 4.22 MIL/uL (4.50-6.20); RED CELL DISTRIBUTION WIDTH 13.0 % (11.0-15.5); WHITE BLOOD COUNT (AUTO) 8.1 K/uL (4.8-10.8)
[2025-01-24 13:36] LABS: CREATINE KINASE, TOTAL 25.0 U/L (21-232); CREATININE 1.2 mg/dL (0.5-1.3); GLOMERULAR FILTR. RATE CALC 64.0 mL/min (>90); GLUCOSE,RANDOM 145.0 mg/dL (70-105); SODIUM SERUM 136.0 mmol/L (136-145); UREA NITROGEN, BLOOD 15.0 mg/dL (7-18)
[2025-01-24 13:59] LABS: SARS-CoV-2, RNA, NAAT NEGATIVE SARS CoV-2 (NEGATIVE)
--- NOTE | 2025-01-24 14:01 | HMCIMG ---
EXAM: CR Chest, 1 View. CLINICAL HISTORY: CHEST PAIN COMPARISON: Radiograph dated November 28, 2024 FINDINGS: Multifocal airspace disease bilaterally (more pronounced within the left lung), unchanged from the prior examination. Suspected small bilateral effusions evident by flattening of the hemidiaphragms. No pneumothorax. Prior sternotomy. Heart size and pulmonary vessels appear within normal limits. IMPRESSION: 1. Stable multifocal airspace disease, more pronounced in the left lung. 2. Suspected small bilateral pleural effusions. /[place]
[2025-01-24 14:05] LABS: INFLUENZA TYPE A Negative For Type A (NEGATIVE); INFLUENZA TYPE B Negative For Type B (NEGATIVE)
--- NOTE | 2025-01-24 14:46 | ERN ---
ED Note History of Present Illness Stated Complaint: CP, SOB Chief Complaint: Chest Pain Time Seen by MD: 13:25 Time Seen by Midlevel: 13:28 Dictation: 74-year-old male with a history of lung fibrosis, hypertension, open heart complaining of shortness a breath for one week. Increasingly worsening. Patient states now he feels short of breath even from walking short distances. Denies any fevers, cough congestion. Allergies: Coded Allergies: iodine (Unverified Allergy, Unknown, 02/12/21) Home Meds Active Scripts Pantoprazole Sodium (Pantoprazole Sodium) 40 Mg Tablet.dr, 1 TAB PO DAILY for 90 Days, #90 TAB 1 Refill Prov:KARENA CONTRERAS MD 11/29/24 Fluticasone Propionate (Fluticasone Propionate) 50 Mcg/Actuation [place].susp, 2 SPRAY NS BID PRN for NASAL CONGESTION for 90 Days, #16 GM 0 Refills Prov:KARENA CONTRERAS MD 11/28/24 Metoprolol Succinate (Metoprolol Succinate) 50 Mg Tab.er.24h, 50 MG PO DAILY, #90 TAB Prov:KARENA CONTRERAS MD 11/28/24 Atorvastatin Calcium (Atorvastatin Calcium) 20 Mg Tablet, 20 MG PO HS, #90 TAB Prov:KARENA CONTRERAS MD 11/28/24 Clopidogrel Bisulfate (Clopidogrel) 75 Mg Tablet, 75 MG PO DAILY, #90 TAB Prov:KARENA CONTRERAS MD 11/28/24 Azelastine HCl (Azelastine HCl) 137 Mcg (0.1 %) Gasquet.pump, 1 SPRAY NS BID PRN for allergies for 30 Days, #30 ML 0 Refills Prov:KARENA CONTRERAS MD 11/28/24 Albuterol Sulfate (Ventolin Hfa) 90 Mcg Hfa.aer.ad, 2 PUFF IH Q4HPRN PRN for wheezing for 30 Days, #18 GM 0 Refills Prov:KARENA CONTRERAS MD 11/28/24 Loratadine (Loratadine) 10 Mg Tablet, 10 MG PO DAILY PRN for allergies, #90 TAB Prov:KARENA CONTRERAS MD 11/28/24 Reported Medications Fluticasone/Vilanterol (Breo Ellipta 100-25 Mcg INH) 100 Mcg-25 Mcg/Dose Aer. pow.ba, 1 PUFF IH DAILY for 30 Days, #1 EACH 0 Refills 09/03/24 Ranolazine (Ranolazine ER) 500 Mg Tab.er.12h, 500 MG PO BID, TAB 04/22/23 Nintedanib Esylate (Ofev) 150 Mg Capsule, 150 MG PO BID, CAP 04/22/23 Isosorbide Mononitrate (Isosorbide Mononitrate ER) 60 Mg Tab.er.24h, 60 MG PO DAILY, TAB 02/12/21 Past Medical History Past Medical History: CAD, High Cholesterol, Hypertension, Other Additional Past Medical Hx: LUNG FIBROSIS Surgical History: CABG Surgical History Other: LT KNEE, RT ANKLE Review of System Dictation Constitutional: Negative for fever,chills, and weight loss Eyes: Negative for injury, pain,redness, and discharge ENT: Negative for injury,pain or swelling Cardiovascular: Negative for chest pain, palpitations, and edema Respiratory: Negative for shortness of breath, cough, and wheezing, Abdomen/GI: Negative for abdominal pain, nausea, vomiting, diarrhea, and constipation Back: Negative for injury and pain : Negative for injury, bleeding and discharge MS/Extremity: Negative for injury and deformity Skin: Negative for rash, and discoloration Neuro: Negative for headache, weakness, numbness, tingling, and seizure Psych: Negative for suicide ideation, homicidal ideation, and hallucinations Constitutional: Negative for fever,chills, and weight loss Eyes: Negative for injury, pain,redness, and discharge ENT: Negative for injury,pain or swelling Cardiovascular: Negative for chest pain, palpitations, and edema Respiratory: Complaining of shortness a breath Abdomen/GI: Negative for abdominal pain, nausea, vomiting, diarrhea, and constipation Back: Negative for injury and pain : Negative for injury, bleeding and discharge MS/Extremity: Negative for injury and deformity Skin: Negative for rash, and discoloration Neuro: Negative for headache, weakness, numbness, tingling, and seizure Psych: Negative for suicide ideation, homicidal ideation, and hallucinations Review of Systems: was completed Initial Vital Sign VS Vital Signs Date Time Temp Pulse Resp B/P (MAP) Pulse Ox O2 Delivery O2 Flow Rate FiO2 01/24/25 13:00 97.5 108 20 127/85 94 Room Air 0 Physical Exam Dictation General: awake, alert, NAD Head/Face: Normocephalic, atraumatic Eyes: PERRL, EOMI, vision at baseline ENT: oral cavity clear, TMs clear, no signs of infection Neck: Trachea midline, supple, no nuchal rigidity Cardiovascular: RRR, normal S1/S2, No MRGs, no JVD Respiratory: CTAB, no respiratory distress, No rales or wheezes Abdomen: Soft, non-tender, non-distended, normal bowel sounds, no guarding or rebound. Skin: Warm, dry, normal turgor, no rash MS/Extremity: Pulses equal, no cyanosis, neurovascular intact, FROM Neuro: COAx4, GCS 15, strength 5/5, CN 2-12 intact, normal cerebellar exam, normal gait, Psych: Normal behavior, mood, and affect normal Results (Laboratory/Radiology) Laboratory/Radiology Laboratory Tests Test 01/24/25 13:11 01/24/25 13:35 White Blood Count 8.1 K/uL (4.8-10.8) Red Blood Count 4.22 MIL/uL (4.50-6.20) L Hemoglobin 13.7 g/dL (14.0-18.0) L Hematocrit 41.6 % (42-54) L Mean Corpuscular Volume 98.6 fL (79-99) Mean Corpuscular Hemoglobin 32.5 pg (27.0-33.0) Mean Corpuscular Hemoglobin Concent 32.9 g/dL (32.0-36.0) Red Cell Distribution Width 13.0 % (11.0-15.5) Platelet Count 280 K/uL (130-400) Mean Platelet Volume 8.1 fL (7.5-10.5) Immature Granulocyte % (Auto) 1.2 % (0-1) H Neutrophils (%) (Auto) 70.5 % (40.0-77.0) Lymphocytes (%) (Auto) 17.5 % (21.0-51.0) L Monocytes (%) (Auto) 8.3 % (3.0-13.0) Eosinophils (%) (Auto) 2.1 % (0.0-8.0) Basophils (%) (Auto) 0.4 % (0.0-5.0) Neutrophils # (Auto) 5.7 K/uL (1.8-7.7) Lymphocytes # (Auto) 1.4 K/uL (1.0-4.8) Monocytes # (Auto) 0.7 K/uL (0.1-1.0) Eosinophils # (Auto) 0.17 K/uL (0.00-0.70) Basophils # (Auto) 0.03 K/uL (0.00-0.20) Absolute Immature Granulocyte (auto 0.10 K/uL (0-1) Nucleated Red Blood Cells 0.0 % (0.0-0.19) Sodium Level 136 mmol/L (136-145) Potassium Level 4.5 mmol/L (3.5-5.1) Chloride Level 97 mmol/L (101-111) L Carbon Dioxide Level 30 mmol/L (21-32) Blood Urea Nitrogen 15 mg/dL (7-18) Creatinine 1.2 mg/dL (0.5-1.3) Glomerular Filtration Rate Calc 64 mL/min (>90) Random Glucose 145 mg/dL (70-105) H Total Calcium 9.4 mg/dL (8.5-10.1) Total Creatine Kinase 25 U/L (21-232) Troponin I High Sensitivity 5 ng/L (4-75) B-Type Natriuretic Peptide 81 pg/mL (0-100) Influenza Type A Antigen Negative For Type A Influenza Type B Antigen Negative For Type B SARS-CoV-2, RNA, NAAT NEGATIVE SARS CoV-2 Labs Reviewed?: Yes X-RAY Comment: [place] [id number] [address] IMAGING REPORT Signed PATIENT: MAGED PRUITT MR#: [id number] : 1950 SEX: M AGE: 74 LOCATION: [facility] ORDER 1303 STATUS: [facility] REPORT#: [id number] SERVICE 1302 REASON: CHEST PAIN ORDERING PHYSICIAN: ARUNA BRIGHT MD PROCEDURE: CXR1VW - CHEST 1VW EXAM: CR Chest, 1 View. CLINICAL HISTORY: CHEST PAIN COMPARISON: Radiograph dated November 28, 2024 FINDINGS: Multifocal airspace disease bilaterally (more pronounced within the left lung), unchanged from the prior examination. Suspected small bilateral effusions evident by flattening of the hemidiaphragms. No pneumothorax. Prior sternotomy. Heart size and pulmonary vessels appear within normal limits. IMPRESSION: 1. Stable multifocal airspace disease, more pronounced in the left lung. 2. Suspected small bilateral pleural effusions. /[place] DICTATED BY: AGATA GUIDRY Jr., MD DATE: 01/24/251499 ELECTRONICALLY SIGNED BY: AGATA GUIDRY Jr., MD DATE: 01/24/251499 ED Course ED Course Orders Procedure Category Date Status Time Troponin I High LAB 01/24/25 Complete Sensitivity 13:02 Vital Signs Per CPOE 01/24/25 Transmitted Routine 13:02 Chest 1vw RAD 01/24/25 Resulted 13:02 12 Lead Ekg Tracing- EKG 01/24/25 Complete Technical 13:02 Oxygen By Nc/Pulse Ox CPOE 01/24/25 Transmitted 13:02 Maintain Iv CPOE 01/24/25 Transmitted 13:02 Iv Insertion CPOE 01/24/25 Transmitted 13:02 Cardiac Monitoring CPOE 01/24/25 Transmitted 13:02 Pulse Oximetry With CPOE 01/24/25 Transmitted Vs And Prn 13:02 Cbc With Differential LAB 01/24/25 Complete 13:02 Activity: Br W/Brp CPOE 01/24/25 Transmitted With Assist 13:02 Creatine Kinase, Total LAB 01/24/25 Complete 13:02 Urinalysis Profile LAB 01/24/25 Logged 13:02 Basic Metabolic Panel LAB 01/24/25 Complete 13:02 B-Type Natriuretic LAB 01/24/25 Complete Peptide 13:33 Covid Rna Naat LAB 01/24/25 Complete 13:33 Influenza Type A & B, LAB 01/24/25 Complete Rapid 13:33 Ct Chest Pe Protocol CT 01/24/25 Verified Wwo Cont 16:02 Methylprednisolone PHA 01/24/25 Verified Succ 125mg (Solu-Medr 16:02 Ipratropium/Albuterol PHA 01/24/25 Verified Neb (Duoneb) 16:02 Troponin I High LAB 01/24/25 Verified Sensitivity 16:02 Vital Signs Date Time Temp Pulse Resp B/P (MAP) Pulse Ox O2 Delivery O2 Flow Rate FiO2 7/10/25 13:00 97.5 108 20 127/85 94 Room Air 0 HEART Score Response (Comments) Value History: Low suspicion (0) 0 EKG: Normal 0 Age: > 65yrs (+2) 2 Risk Factors: 3+ risk factors (+2) 2 Initial Troponin: Normal limit (0) 0 Total 4 Medical Decision Making MDM MDM: 74-year-old male with a history of lung fibrosis, hypertension, open heart complaining of shortness a breath for one week. Increasingly worsening. Patient states now he feels short of breath even from walking short distances. Denies any fevers, cough congestion. Remarkable. Troponin is negative. Flu admit patient for rule out PE, rule out ACS. Spoke to Dr. Contreras. Recommended adding an order for CT to rule out PE and some steroids to help with the his shortness a breath. Differential diagnosis: Pneumonia, fluid overload, pleural effusions Rationale: Tests considered and ordered secondary to shared decision making include: labs, ECG and radiology Previous outside records reviewed: Old ER visits. Risk of complication and/or morbidity or mortality of patient management: None Medications-Per medication reconciliation Need for hospitalization: Patient does meet criteria for hospitalization. Need for emergency major/minor surgery: No There are no social concerns with this patient. Prescription drug management Prescriptions will include symptomatic care Patient's prior external medical records from other ER visits were reviewed by me as indicated. Prior testing and results from previous visits were reviewed. Prior tests were taken into account with medical decision making and resource utilization, independent historian/historians were used to obtain complete medical history. I independently interpreted the test that were performed, results were reviewed by me and considered findings on radiology if ordered. Medical management and examination interpretation discussions were had by me with other qualified healthcare professionals as indicated for the patient's care. DX & DISP Disposition: Inpatient Decision to Admit Date: Jan 24, 2025 Decision to Admit Time: 16:05 Departure Impression: Primary Impression: Atypical chest pain Additional Impressions: Shortness of breath on exertion, Pleural effusion Condition: Stable Referrals: KARENA CONTRERAS MD (PCP) I have reviewed the case, and I agree with, Diagnosis and Plan LISA MAE NP Jan 24, 2025 14:46
[2025-01-24] MEDS ORDERED: FLUT1BLS3 IH (16:08)
[2025-01-24] MEDS ORDERED: ALBU90AE IH (16:08)
[2025-01-24] MEDS ORDERED: METO-391 PO (16:11)
[2025-01-24] MEDS ORDERED: ISOS60TA77 PO (16:11)
[2025-01-24 16:16] VITALS: PULSE 102; RESP 20
[2025-01-24] MEDS: Solu-medROL 40MG VIAL IVP SCH (16:30)
[2025-01-24 19:00] LABS: APPEARANCE,URINE CLEAR (CLEAR); GLUCOSE, URINE (UA) NEGATIVE (NEGATIVE); LEUKOCYTE ESTERASE ,URINE NEGATIVE Leu/uL (NEGATIVE); NITRATE,URINE NEGATIVE (NEGATIVE); OCCULT BLOOD,URINE NEGATIVE (NEGATIVE)
[2025-01-24 19:01] LABS: ADD UA MICROSCOPIC YES
[2025-01-24 19:05] LABS: OTHER CASTS, URINE 7 /LPF (None Seen); SQUAMOUS EPITHELIAL CELL,UR RARE /HPF (0-2)
[2025-01-24 19:43] VITALS: PULSE 97; RESP 18; O2SAT 95
[2025-01-24] MEDS: ENOXAPARIN SODIUM 40 MG/0.4 ML SYRINGE SQ ONE (22:12)
[2025-01-24 23:30] VITALS: BP 119/82; PULSE 96; RESP 20; TEMP 98.1
--- NOTE | 2025-01-24 23:54 | HP ---
HISTORY AND PHYSICAL Date of Visit: Jan 24, 2025 Time of Visit: 23:54 ADMISSION DATE: Jan 24, 2025 at 16:03 CC: SOB HPI: This is a 74-year-old man with a history of lung fibrosis, hypertension, CAD S/P CABG presented complaining increasingly SOB worsening over the past week. Patient states now he feels short of breath even from walking short distances. Denies any fevers, but has had a lot of cough and congestion. He has been to his [employer] and the only medication changes were that he had his Breo changed to Trelegy. He has been compliant with all his medications and inhalers. Also of note he has recently had a Kristyn Stress test to evaluate his symptoms which was negative. 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 RECENT HX ABN WEIGHT LOSS WITH GI WORK UP - 12/2024 S/P EGD AND COLONOSCOPY 08/2024 - HH W GASTRITIS/ METAPLASIA, H PYLORI AND COLON POLYPS HYPERLIPIDEMIA - MIXED LBP WITH RADICULOPATHY PROGRESSIVE, 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/ LUMBAR MYELOPATHY S/P L KNEE MENISCAL TEAR SURGERY, ARTHROTOMY S/P R ANKLE ORIF S/P SINUS SURGERY SOCIAL HISTORY: AND LIVES LOCALLY NO HISTORY OF ALCOHOL TOBACCO OR DRUG ABUSE FAMILY HISTORY: + CANCER AND DM ^ Patient History: Cancer FATHER, , Onset:Unknown Family history: Diabetes mellitus MOTHER, Family history: Hypertension MOTHER, , Onset:Unknown Allergies: Coded Allergies: iodine (Unverified Allergy, Unknown, 02/12/21) Scheduled Atorvastatin Calcium (Atorvastatin Calcium), 20 MG PO HS Clopidogrel Bisulfate (Clopidogrel), 75 MG PO DAILY Isosorbide Mononitrate (Isosorbide Mononitrate ER), 60 MG PO AM Metoprolol Succinate (Metoprolol Succinate), 50 MG PO HS Nintedanib Esylate (Ofev), 150 MG PO BID, (Reported) Pantoprazole Sodium (Pantoprazole Sodium), 1 TAB PO DAILY Ranolazine (Ranolazine ER), 500 MG PO BID, (Reported) Discontinued Medications Albuterol Sulfate (Ventolin Hfa), 2 PUFF IH Q4HPRN PRN for wheezing Discontinued Reason: Prescription changed Albuterol Sulfate (Proair Respiclick), 2 PUFF IH Q4HPRN PRN for shortness of breath Azelastine HCl (Azelastine HCl), 1 SPRAY NS BID PRN for allergies Fluticasone Propionate (Fluticasone Propionate), 2 SPRAY NS BID PRN for NASAL CONGESTION Fluticasone/Umeclidin/Vilanter (Trelegy Ellipta 100-62.5-25), 1 PUFF IH DAILY Fluticasone/Vilanterol (Breo Ellipta 100-25 Mcg INH), 1 PUFF IH DAILY, (Reported) Loratadine (Loratadine), 10 MG PO DAILY PRN for allergies Metoprolol Succinate (Metoprolol Succinate), 50 MG PO DAILY Discontinued Reason: Prescription changed Review of Systems Normal Constitutional:, Normal Eyes:, Normal Ear/Nose/Mouth/Throat, Normal Cardiovascular:, Normal Gastrointestinal:, Normal Genitourinary:, Normal Integumentary:, Normal Musculoskeletal:, Normal Neurological:, Normal Psychological:, Normal Endocrine:, Normal Hematologic/Lymphatic:, Normal Allergic/Immunologic:; Abnormal Respiratory: (FINCH AND SOB) Physical Exam Vital Signs Vital Signs Date Time Temp Pulse Resp B/P (MAP) Pulse Ox O2 Delivery O2 Flow Rate FiO2 01/24/25 13:00 97.5 108 20 127/85 94 Room Air 0 01/24/25 17:54 21 Eyes: Clear, PERRL, EOM Normal Ear/Nose/Mouth/Throat: Landmarks WNL, Oropharynx WNL Cardiovascular: PMI WNL, Regular Rate, Regular Rhythm Respiratory: Abnormal (DECREASED BS BILATERALLY) G.I.: Normal bowel sounds, No rebound tenderness Lymphatic: No lymphadenopathy neck, No lymphadenopathy axilla Musculoskeletal: Gait WNL, Normal ROM, Strength/Tone WNL Breasts: Symmetrical, no masses Skin: Abnormal Neurology: Nerves I-XII intact, Sensation WNL Psychology: Insight WNL, Orientation WNL, Memory WNL, Affect WNL Diagnostics Laboratory Tests Test 01/24/25 13:11 01/24/25 13:35 01/24/25 16:10 01/24/25 18:00 Range/Units White Blood Count 8.1 4.8-10.8 K/uL Red Blood Count 4.22 4.50-6.20 MIL/uL Hemoglobin 13.7 14.0-18.0 g/dL Hematocrit 41.6 42-54 % Mean Corpuscular Volume 98.6 79-99 fL Mean Corpuscular Hemoglobin 32.5 27.0-33.0 pg Mean Corpuscular Hemoglobin Concent 32.9 32.0-36.0 g/dL Red Cell Distribution Width 13.0 11.0-15.5 % Platelet Count 280 130-400 K/uL Mean Platelet Volume 8.1 7.5-10.5 fL Immature Granulocyte % (Auto) 1.2 0-1 % Neutrophils (%) (Auto) 70.5 40.0-77.0 % Lymphocytes (%) (Auto) 17.5 21.0-51.0 % Monocytes (%) (Auto) 8.3 3.0-13.0 % Eosinophils (%) (Auto) 2.1 0.0-8.0 % Basophils (%) (Auto) 0.4 0.0-5.0 % Neutrophils # (Auto) 5.7 1.8-7.7 K/uL Lymphocytes # (Auto) 1.4 1.0-4.8 K/uL Monocytes # (Auto) 0.7 0.1-1.0 K/uL Eosinophils # (Auto) 0.17 0.00-0.70 K/uL Basophils # (Auto) 0.03 0.00-0.20 K/uL Absolute Immature Granulocyte (auto 0.10 0-1 K/uL Nucleated Red Blood Cells 0.0 0.0-0.19 % Sodium Level 136 136-145 mmol/L Potassium Level 4.5 3.5-5.1 mmol/L Chloride Level 97 101-111 mmol/L Carbon Dioxide Level 30 21-32 mmol/L Blood Urea Nitrogen 15 7-18 mg/dL Creatinine 1.2 0.5-1.3 mg/dL Glomerular Filtration Rate Calc 64 >90 mL/min Random Glucose 145 70-105 mg/dL Total Calcium 9.4 8.5-10.1 mg/dL Total Creatine Kinase 25 21-232 U/L Troponin I High Sensitivity 5 5 4-75 ng/L B-Type Natriuretic Peptide 81 0-100 pg/mL Influenza Type A Antigen Negative For Type A NEGATIVE Influenza Type B Antigen Negative For Type B NEGATIVE SARS-CoV-2, RNA, NAAT NEGATIVE SARS CoV-2 NEGATIVE Urine Color LIGHT-YELLOW YELLOW Urine Appearance CLEAR CLEAR Urine pH 6.5 5.0-8.0 Urine Specific [place] 1.008 1.001-1.031 Urine Protein 10 NEGATIVE mg/dL Urine Glucose (UA) NEGATIVE NEGATIVE mg/dL Urine Ketones NEGATIVE NEGATIVE mg/dL Urine Occult Blood NEGATIVE NEGATIVE Urine Nitrate NEGATIVE NEGATIVE Urine Bilirubin NEGATIVE NEGATIVE mg/dL Urine Urobilinogen 0.2 0.2-1.0 mg/dL Urine Leukocyte Esterase NEGATIVE NEGATIVE [place]/uL Urine RBC 0-1 0-1 /HPF Urine WBC 0-1 0-1 /HPF Urine Squamous Epithelial Cells RARE 0-2 /HPF Urine Bacteria RARE None Seen /HPF Urine Other Casts 7 None Seen /LPF Assessment/Plan Assessment/Plan ASSESSMENT: THIS IS A 74 YR OLD MAN WITH HISTORY OF CAD S/P 5 V CABG 12/31 - EF 65 %, S/P LCX STENT 03/04 W RECURRENT NONOBSTRUCTIVE 4/ GRAFTS - NEGATIVE LEXISCAN STRESS TEST- 11/2024 HYPERTENSIVE HEART AND RENAL DIS W 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 RECENT HX ABN WEIGHT LOSS WITH GI WORK UP - 12/2024 S/P EGD AND COLONOSCOPY 08/2024 - HH W GASTRITIS/ METAPLASIA, H PYLORI AND COLON POLYPS HYPERLIPIDEMIA - MIXED LBP WITH RADICULOPATHY PROGRESSIVE, 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/ LUMBAR MYELOPATHY S/P L KNEE MENISCAL TEAR SURGERY, ARTHROTOMY S/P R ANKLE ORIF S/P SINUS SURGERY HE PRESENTED WITH SOB /FINCH ETIOLOGIES INCLUDE EXACERBATION OF HIS LUNG DISEASE, PE AND UNDERLYING PNEUMONIA PLAN: WILL ADMIT FOR OBSERVATION AND TREAT FOR EXACERBATION OF HIS LUNG DISEASE R/O PULMONARY EMBOLISM WITH VQ SCAN SINCE HAS ALLERGY TO IODINE FOR CT FREQUENT NEBS O2 SUPPLEMENTATION IV STEROIDS STARTED ON IV ROCEPHIN HOLD BP MEDS FOR HYPOTENSION CONT PPI INCREASE DIET AND REHAB TOLERATED KARENA RIBEIRO MD Jan 24, 2025 23:54
[2025-01-25] VITALS (12 sets, daily range): BP systolic 97–124; BP diastolic 52–72; PULSE 80–96; RESP 16–18; TEMP 97.6–98.2; O2SAT 95–97
--- NOTE | 2025-01-25 | HMCIMG ---
EXAM: NM Lung Perfusion and Ventilation Scan. CLINICAL HISTORY: R/O PE TECHNIQUE: Ventilation images of the lungs were obtained after inhalation of the radiopharmceutical. Then, radiolabeled MAA was administered intravenously and planar images of the lungs were obtained in multiple projections. COMPARISON: CT chest from earlier today FINDINGS: VENTILATION: No segmental ventilation defect. PERFUSION: No segmental perfusion defect. IMPRESSION: Normal VQ scan based on modified PIOPED criteria. /[place]
[2025-01-25] MEDS: ENOXAPARIN SODIUM 40 MG/0.4 ML SYRINGE SQ SCH (08:06)
[2025-01-25] MEDS: NINTEDANIB ESYLATE 150 MG PO SCH (09:00)
[2025-01-25] MEDS: RANOLAZINE 500 MG TAB.SR.12H PO SCH (09:14)
--- NOTE | 2025-01-25 10:22 | NUR ---
DCP: HOME met with pt, Suze Javier [phone], tr Delia Javier [phone]. Pt is hard of hearing, forgot to bring hearing aids. Pt has cataract surgery scheduled for Feb on both eyes. Pt reports that he is able to complete self care and ambulation without assistance. Pt has a cane if needed. Denies need for provider, HH or HD services at this time. PCP is Oneida Contreras and uses [facility] for rx needs. DCP is home Addendum: 01/25/25 at 1033 by LJ RIVERA Amended: Links added.
[2025-01-25] MEDS: Solu-medROL 40MG VIAL IVP SCH (20:16)
[2025-01-26] VITALS (10 sets, daily range): BP systolic 94–110; BP diastolic 56–69; PULSE 73–88; RESP 16–18; TEMP 96.5–98.6; O2SAT 87–99
[2025-01-26] MEDS ORDERED: PRED10TA3 PO (10:29)
[2025-01-26] MEDS ORDERED: LEVO-70 PO (10:29)
--- NOTE | 2025-01-26 14:17 | NUR ---
Home O2 Met w pt and family this afternoon to discuss 6min walk test results and Md order for home O2 @ dc. They verbalize understanding. HOLLIS/PC obtained for 1st choice [facility] and 2nd -[facility]. RT O2 results along w clinical/orders faxed to [facility]. Octavio notified of new referral. states will work on request. Octavio was informed plan is for pt discharge today pending O2 delivery. Notified Dr Contreras regarding above.
--- NOTE | 2025-01-26 18:52 | NUR ---
PATIENT DSICHARGED HOME ID BAND,IV AND TELE ALICIA REMOVED. DISCHARGE INSTRUCTIONS EXPLAINED AND GIVEN TO PATIENT. PATIENT VERBALIZED UNDERSTANDING. HOME O2 DELIVERED AT BEDSIDE. BELONGINGS PACKED AND TKAEN FOLLOW UP WITH ABRAHAN HER. HOME O2 TRANSPORTED WITH PATIENT. WHEELED DOWN TO PRIVATE CAR.
--- NOTE | 2025-01-26 22:02 | PN ---
Subjective Review of Systems PROGRESS NOTE Date of Visit: Jan 25, 2025 Time of Visit: 09:53 Events since last encounter patient breathing better Subjective No other issues over night General: No Fever, No Chills, No Night Sweats, No Fatigue, No Malaise, No Appetite, No Other HEENT: No Head Aches, No Visual Changes, No Eye Pain, No Ear Pain, No Dysphasia, No Sinus Congestion, No Post Nasal Drip, No Sore Throat, No Other Pulmonary: No Dyspnea, No Cough, No Pleuritic Chest Pain, No Other Cardiovascular: No: Chest Pain, Palpitations, Orthopnea, Paroxysmal Noc. Dyspnea, Edema, Lt Headedness, Other Gastrointestinal: No: Nausea, Vomiting, Abdominal Pain, Diarrhea, Constipation, Melena, Hematochezia, Other Genitourinary: No Dysuria, No Frequency, No Incontinence, No Hematuria, No Retention, No Other Musculoskeletal: No: other, neck pain, shoulder pain, arm pain, back pain, hand pain, leg pain, foot pain Skin: No Urticaria, No Rash, No Other Neurological: No: Weakness, Numbness, Incoordination, Change in speech, Confusion, Seizures, Other Objective Vitals and I/O Vital Sign (Last 24 Hours) 01/26/25 01/26/25 01/26/25 01/26/25 08:00 16:00 17:01 17:02 Temp 98.1 Pulse 85 Resp 18 B/P (MAP) 110/68 Pulse Ox 97 O2 Delivery N/Cannula Low lpm O2 Flow Rate 0 FiO2 28 Intake & Output (last 24hrs) 01/25/25 01/25/25 01/26/25 15:00 23:00 07:00 Intake Total 370 ml Output Total 475 ml Balance 370 ml -475 ml General: Alert, Oriented X3, Cooperative, No acute distress HEENT: Atraumatic, PERRLA, EOMI Neck: Supple, No JVD, No thyromegaly Lungs: Other (distant breath sounds but improved) Heart: Regular rate, Regular rhythm Abdomen: Normal bowel sounds, Soft, No tenderness Extremities: No clubbing, No cyanosis, No edema Skin: No rashes, No breakdown, No significant lesion Neuro: Normal gait, Normal speech, Normal tone Psych/Mental Status: Mental status NL, Mood NL, Thoughts/Content NL Results RADIOLOGY: [] EKG: [] Medications Current Medications Methylprednisolone Sodium Succinate 125 mg ONCE STAT IVP Last administered on 01/24/25at 17:44; Start 01/24/25 at 16:02; Stop 01/24/25 at 16:04; Status DC Albuterol 1 UDVIAL ONCE STAT IH Last administered on 01/24/25at 16:13; Start 01/24/25 at 16:02; Stop 01/24/25 at 16:04; Status DC Pantoprazole Sodium 40 mg DAILY PO Last administered on 01/25/25at 08:06; Start 01/25/25 at 09:00; Stop 01/25/25 at 09:29; Status DC Ceftriaxone Sodium 1 gm Q24H IVPB Last administered on 01/24/25at 17:44; Start 01/24/25 at 16:30; Stop 01/25/25 at 09:24; Status DC Acetaminophen 650 mg Q6H PRN PO; Start 01/24/25 at 16:30; Stop 01/26/25 at 19:18; Status DC Ondansetron HCl 4 mg Q6H PRN IVP; Start 01/24/25 at 16:30; Stop 01/26/25 at 19:18; Status DC Methylprednisolone Sodium Succinate 80 mg Q8H IVP Last administered on 01/25/25at 08:06; Start 01/24/25 at 16:30; Stop 01/25/25 at 09:24; Status DC Albuterol 1 UDVIAL [id number] IH Last administered on 01/26/25at 17:00; Start 01/24/25 at 18:00; Stop 01/26/25 at 19:18; Status DC Enoxaparin Sodium 40 mg DAILY SQ Last administered on 01/25/25at 08:06; Start 01/25/25 at 09:00; Stop 01/25/25 at 09:24; Status DC Enoxaparin Sodium 40 mg ONCE ONCE SQ Last administered on 01/24/25at 22:12; Start 01/24/25 at 19:30; Stop 01/24/25 at 19:32; Status DC Atorvastatin Calcium 20 mg HS PO Last administered on 01/25/25at 20:16; Start 01/25/25 at 21:00; Stop 01/26/25 at 19:18; Status DC Clopidogrel Bisulfate 75 mg DAILY PO Last administered on 01/26/25at 08:33; Start 01/25/25 at 09:00; Stop 01/26/25 at 19:18; Status DC Metoprolol Succinate 50 mg HS PO; Start 01/25/25 at 21:00; Stop 01/25/25 at 09:24; Status DC Pantoprazole Sodium 40 mg DAILY PO; Start 01/25/25 at 09:00; Stop 01/25/25 at 08:46; Status DC Ranolazine 500 mg BID PO Last administered on 01/26/25at 08:33; Start 01/25/25 at 09:00; Stop 01/26/25 at 19:18; Status DC Home Med (Nintedanib Esylate (Ofev) ... BID PO; Start 01/25/25 at 09:00; Stop 01/26/25 at 19:18; Status DC Levofloxacin 500 mg ONCE ONCE PO Last administered on 01/25/25at 09:14; Start 01/25/25 at 09:30; Stop 01/25/25 at 09:31; Status DC Methylprednisolone Sodium Succinate 80 mg Q12H9 IVP Last administered on 01/26/25at 08:33; Start 01/25/25 at 21:00; Stop 01/26/25 at 09:04; Status DC Metoprolol Tartrate 25 mg HS PO Last administered on 01/25/25at 20:16; Start 01/25/25 at 21:00; Stop 01/26/25 at 19:18; Status DC Pantoprazole Sodium 40 mg BID PO Last administered on 01/26/25at 08:33; Start 01/25/25 at 21:00; Stop 01/26/25 at 19:18; Status DC Prednisone 60 mg ONCE ONCE PO Last administered on 01/26/25at 13:20; Start 01/26/25 at 13:00; Stop 01/26/25 at 13:01; Status DC Assessment/Plan ASSESSMENT: THIS IS A 74 YR OLD MAN WITH HISTORY OF CAD S/P 5 V CABG 12/31 - EF 65 %, S/P LCX STENT 03/04 W RECURRENT NONOBSTRUCTIVE 4/5 GRAFTS - NEGATIVE LEXISCAN STRESS TEST- 11/2024 HYPERTENSIVE HEART AND RENAL DIS W 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 RECENT HX ABN WEIGHT LOSS WITH GI WORK UP - 12/2024 S/P EGD AND COLONOSCOPY 08/2024 - HH W GASTRITIS/ METAPLASIA, H PYLORI AND COLON POLYPS HYPERLIPIDEMIA - MIXED LBP WITH RADICULOPATHY PROGRESSIVE, 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/ LUMBAR MYELOPATHY S/P L KNEE MENISCAL TEAR SURGERY, ARTHROTOMY S/P R ANKLE ORIF S/P SINUS SURGERY HE PRESENTED WITH EXACERBATION OF HIS LUNG DISEASE UNDERLYING PNEUMONIA PLAN: NEG WORK UP FOR PULM EMBOLISM WITH VQ SCAN CONTINUE NEBS O2 AND SOLU-MEDROL WEAN STEROIDS TOLERATED CHANGE TO LEVAQUIN HOLD BP MEDS FOR HYPOTENSION CONT PROTON PUMP INHIBITOR FOR STRESS ULCER PROPHYLAXIS TOLERATING DIET WELL INCREASED ACTIVITY TOLERATED WILL D/C LOVENOX WITH INCREASE IN AMBULATION KARENA RIBEIRO MD Jan 26, 2025 22:02
--- NOTE | 2025-01-26 22:11 | DS ---
DISCHARGE SUMMARY Date of Visit: Jan 26, 2025 Time of Visit: 22:11 ADMISSION DATE: Jan 24, 2025 at 16:03 DISCHARGE DATE: Jan 26, 2025 ATTENDED PHYSICIAN: Karena Contreras MD DISCHARGE DIAGNOSIS: COMMUNITY ACQUIRED PNEUMONIA EXACERBATION OF HIS LUNG DISEASE - PULMONARY FIBROSIS ACUTE HYPOXIC RESPIRATORY FAILURE NECESSITATING HOME O2 CAD S/P 5 V CABG 12/31 - EF 65 %, S/P LCX STENT 03/04 W RECURRENT NONOBSTRUCTIVE 4/5 GRAFTS - NEGATIVE LEXISCAN STRESS TEST- 11/2024 HYPERTENSIVE HEART AND RENAL DIS W 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 RECENT HX ABN WEIGHT LOSS WITH GI WORK UP - 12/2024 S/P EGD AND COLONOSCOPY 08/2024 - HH W GASTRITIS/ METAPLASIA, H PYLORI AND COLON POLYPS HYPERLIPIDEMIA - MIXED LBP WITH RADICULOPATHY PROGRESSIVE, 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/ LUMBAR MYELOPATHY S/P L KNEE MENISCAL TEAR SURGERY, ARTHROTOMY S/P R ANKLE ORIF S/P SINUS PATIENT ADMITTING CLERK(S): NONE PROCEDURES: NONE RADIOLOGY: CR Chest, 1 View FINDINGS: Multifocal airspace disease bilaterally (more pronounced within the left lung), unchanged from the prior examination. Suspected small bilateral effusions evident by flattening of the hemidiaphragms. No pneumothorax. Prior sternotomy. Heart size and pulmonary vessels appear within normal limits. IMPRESSION: 1. Stable multifocal airspace disease, more pronounced in the left lung. 2. Suspected small bilateral pleural effusions. PULM VQ - NM PULMONARY/LUNG VQ SCAN FINDINGS: VENTILATION: No segmental ventilation defect. PERFUSION: No segmental perfusion defect. IMPRESSION: Normal VQ scan based on modified PIOPED criteria. HOSPITAL COURSE: THIS IS A 74 YR OLD MAN WITH THE ABOVE PMH WHO PRESENTED WITH COMMUNITY ACQUIRED PNEUMONIA AND EXACERBATION OF HIS LUNG DISEASE- PULMONARY FIBROSIS WITH ACUTE HYPOXIC RESPIRATORY FAILURE. WORK UP WAS NEGATIVE FOR PULMONARY EMBOLISM AND HE HAD A PREVIOUS NEGATIVE CARDIAC WORK UP FOR CARDIAC ETIOLOGIES. HE WAS TREATED FOR COMMUNITY ACQUIRED PNEUMONIA, EXACERBATION OF HIS LUNG DISEASE WITH ACUTE HYPOXIC RESPIRATORY FAILURE. HE WAS TREATED WITH IV ANTIBIOTICS, IV STEROIDS, OXYGEN SUPPLEMENTATION AND FREQUENT NEBS AND RESPONDED TO THERAPY. HE WAS THEN ASSESSED FOR HOME O2 AND QUALIFIED. HE WAS THEN DISCHARGED IN STABLE CONDITION ONCE ARRANGEMENTS WERE MADE FOR HOME O2 AND WAS TO COMPLETE A STEROID TAPER, ORAL LEVAQUIN AND DISCHARGED IN STABLE CONDITION. DIET: HEART HEALTHY ACTIVITY: AT [facility] CONDITION: STABLE EQUIPMENT: NONE FOLLOW UP APPOINTMENT(S): DR CONTRERAS 2-5 DAYS DISPOSITION: HOME CODE STATUS: FULL MEDICATION RECONCILIATION : HOLD ISOSORBIDE AND METOPROLOL ADD LEVAQUIN 500 MG PO DALIY X 1 WEEK PREDNISONE TAPER ^ Home Meds Active Scripts Levofloxacin (Levofloxacin) 500 Mg Tablet, 1 TAB PO DAILY for 7 Days, #7 TAB 0 Refills Prov:KARENA CONTRERAS MD 01/26/25 Prednisone (Prednisone) 10 Mg Tablet, 1 TAB PO AD for 12 Days, #42 TAB 0 Refills 6 TABS DAILY X 3 DAYS 4 TABS DAILY X 3 DAYS 2 TABS DAILY X 3 DAYS 1 TAB DAILY X 3 DAYS THEN STOP AND TAKE WITH FOOD Prov:KARENA CONTRERAS MD 01/26/25 Pantoprazole Sodium (Pantoprazole Sodium) 40 Mg Tablet.dr, 1 TAB PO DAILY for 90 Days, #90 TAB 1 Refill Prov:KARENA CONTRERAS MD 11/29/24 Atorvastatin Calcium (Atorvastatin Calcium) 20 Mg Tablet, 20 MG PO HS, #90 TAB Prov:KARENA CONTRERAS MD 11/28/24 Clopidogrel Bisulfate (Clopidogrel) 75 Mg Tablet, 75 MG PO DAILY, #90 TAB Prov:KARENA CONTRERAS MD 11/28/24 Reported Medications Ranolazine (Ranolazine ER) 500 Mg Tab.er.12h, 500 MG PO BID, TAB 04/22/23 Nintedanib Esylate (Ofev) 150 Mg Capsule, 150 MG PO BID, CAP 04/22/23 Discontinued Reported Medications Fluticasone/Vilanterol (Breo Ellipta 100-25 Mcg INH) 100 Mcg-25 Mcg/Dose Aer.pow.ba, 1 PUFF IH DAILY for 30 Days, #1 EACH 0 Refills 09/03/24 Discontinued Scripts Metoprolol Succinate (Metoprolol Succinate) 50 Mg Tab.er.24h, 50 MG PO HS, #90 TAB Prov:KARENA CNOTRERAS MD 01/24/25 Isosorbide Mononitrate (Isosorbide Mononitrate ER) 60 Mg Tab.er.24h, 60 MG PO AM, #90 TAB Prov:KARENA CONTRERAS MD 01/24/25 Fluticasone/Umeclidin/Vilanter (Trelegy Ellipta 100-62.5-25) 100-62.5 Blst.w.dev, 1 PUFF IH DAILY for 90 Days, #3 EA Prov:KARENA CONTRERAS MD 01/24/25 Albuterol Sulfate (Proair Respiclick) 90 Mcg Aer.pow.ba, 2 PUFF IH Q4HPRN PRN for shortness of breath for 90 Days, #1 EACH 0 Refills Prov:KARENA CONTRERAS MD 01/24/25 Fluticasone Propionate (Fluticasone Propionate) 50 Mcg/Actuation [place].susp, 2 SPRAY NS BID PRN for NASAL CONGESTION for 90 Days, #16 GM 0 Refills Prov:KARENA CONTRERAS MD 11/28/24 Metoprolol Succinate (Metoprolol Succinate) 50 Mg Tab.er.24h, 50 MG PO DAILY, #90 TAB Prov:KARENA CONTRERAS MD 11/28/24 Azelastine HCl (Azelastine HCl) 137 Mcg (0.1 %) [place].pump, 1 SPRAY NS BID PRN for allergies for 30 Days, #30 ML 0 Refills Prov:KARENA CONTRERAS MD 11/28/24 Albuterol Sulfate (Ventolin Hfa) 90 Mcg Hfa.aer.ad, 2 PUFF IH Q4HPRN PRN for wheezing for 30 Days, #18 GM 0 Refills Prov:KARENA CONTRERAS MD 11/28/24 Loratadine (Loratadine) 10 Mg Tablet, 10 MG PO DAILY PRN for allergies, #90 TAB Prov:KARENA CONTRERAS MD 11/28/24 KARENA CONTRERAS MD Jan 26, 2025 22:11
--- NOTE | 2025-01-28 16:39 | HMCIMG ---
EXAM: CT Chest Without IV contrast. CLINICAL HISTORY: R/O PE TECHNIQUE: Axial computed tomography images of the chest without intravenous contrast. COMPARISON: None provided. FINDINGS: LUNGS: Emphysematous lung changes Moderate to severe interstitial lung disease reticulation, groundglass opacities, architectural distortion, honeycombing bronchiectatic changes most evident in the mid to lower lung zones. No consolidation PLEURAL SPACES: No evidence of pneumothorax. No pleural effusion. HEART: No cardiomegaly. No significant pericardial effusion. LYMPH NODES: No lymphadenopathy is evident. UPPER ABDOMEN: The upper abdominal solid organs are unremarkable. BONES: No acute osseous abnormality. IMPRESSION: 1. Emphysematous lung changes 2. Moderate to severe interstitial lung disease 3. No consolidation /[place]
== END 2025-01-26 18:20 | disposition home or self-care (01) ==
LOC: EDH 12:59 → EDHIP 16:03 → 4BH 23:18
PROVIDERS: ADMIT Internal Medicine; ATTEND Internal Medicine
DX: J18.9 Pneumonia, unspecified organism (principal); Z20.822 Contact with and (suspected) exposure to COVID-19; J84.10 Pulmonary fibrosis, unspecified; J96.01 Acute respiratory failure with hypoxia; I13.10 Hypertensive heart and chronic kidney disease without heart failure, with stage 1 through stage 4 chronic kidney disease, or unspecified chronic kidney disease; N18.2 Chronic kidney disease, stage 2 (mild); E78.2 Mixed hyperlipidemia; I25.10 Atherosclerotic heart disease of native coronary artery without angina pectoris; M51.16 Intervertebral disc disorders with radiculopathy, lumbar region; J90 Pleural effusion, not elsewhere classified; R07.89 Other chest pain; M51.06 Intervertebral disc disorders with myelopathy, lumbar region; E78.00 Pure hypercholesterolemia, unspecified; Z79.899 Other long term (current) drug therapy; Z95.1 Presence of aortocoronary bypass graft; Z91.041 Radiographic dye allergy status; Z88.8 Allergy status to other drugs, medicaments and biological substances; Z86.0100 Personal history of colon polyps, unspecified
CPT/HCPCS: 96372 ×2; 96365; 96375; 99285; 82550; 84484 ×2; 80048; 83880; 85025; 87071; 87086; 87186; 87205; 87804 ×2; 81001; 36415; 87635; 71045; 71250; 78582; 93005; 96376 ×2; 94760; 94640; G0378 ×50; J2919 ×5; J0696; J1650 ×2; A9540; A9558; 94664